=== PATIENT | female | born 1985 | race Caucasian/White ===

== ENCOUNTER → 2018-11-14 | Outpatient (CLI) | payer OTHER, SELFPAY ==
[2018-11-14 10:27] LABS: hCG Titer Quant., Serum < 1 mIU/mL (<9 non-preg)
== END | disposition home or self-care (01) ==
LOC: PAVLAB 09:21
PROVIDERS: Family Provider Family Medicine; PCP Family Medicine; Referring Provider Obstetrics & Gynecology; Visit Provider Obstetrics & Gynecology
DX: Z34.90 Encounter for supervision of normal pregnancy, unspecified, unspecified trimester (principal)
CPT/HCPCS: 36415; 84702

== ENCOUNTER → 2019-01-23 | Outpatient (CLI) | payer OTHER, SELFPAY ==
[2019-01-23 13:06] LABS: Absolute Lymphocyte Count 2.39 X10^3/ul (0.83-4.51); Absolute Neutrophil Count 8.1 X10^3/uL (2.0-7.7); Basophil# 0.05 X10^3/uL; Basophil% 0.4 % (0-1); Eosinophil# 0.15 X10^3/uL; Eosinophils% 1.3 % (0-5); Hematocrit 40.5 % (37-47); Hemoglobin 12.8 g/dl (12.0-15.0); Lymphocyte # 2.39 X10^3/ul (4.0); Lymphocyte % 21.4 % (19-41); Mean Corp Hgb Conc 31.6 g/gl (32-36); Mean Corpuscular Hgb 24.2 pg (27.0-32.0); Mean Corpuscular Volume 76.7 fL (81-99); Mean Platelet Vol. 11.3 fl (6.2-12.0); Monocyte# 0.49 X10^3/uL; Monocyte% 4.4 % (0-10); Neutrophil # 8.07 X10^3/uL (2.7-7.7); Neutrophil % 72.2 % (47-70); Platelet Count 330 K/mm3 (150-450); RBC Distribution Width CV 14.4 % (11.6-14.6); RBC Distribution Width SD 39.6 fl (35.1-43.9); Red Blood Count 5.28 M/mm3 (4.2-5.4); White Blood Count 11.2 K/mm3 (4.4-11.0)
[2019-01-23 13:09] LABS: POSITIVE COUNT NO; POSITIVE DIFFERENTIAL NO; POSITIVE MORPHOLOGY NO
[2019-01-23 13:48] LABS: Thyroid Stim Hormone (TSH) 1.04 uIU/mL (0.358-3.74)
== END | disposition home or self-care (01) ==
LOC: LAB 12:26
PROVIDERS: Family Provider Family Medicine; PCP Family Medicine; Referring Provider Obstetrics & Gynecology; Visit Provider Obstetrics & Gynecology
DX: N93.9 Abnormal uterine and vaginal bleeding, unspecified (principal)
CPT/HCPCS: 36415; 84443; 85025

== ENCOUNTER → 2019-01-27 | Outpatient (CLI) | payer OTHER, SELFPAY ==
[2018-02-21 10:18] VITALS: BMI 45.6
--- NOTE | 2019-01-27 10:12 | US_ITS ---
HISTORY: Abnormal uterine dysfunction. Abnormal uterine bleeding. LMP 01/18/2019 50 endovaginal images. 53 transabdominal images. Findings: No comparison imaging: Endovaginal imaging: The urinary bladder is mostly decompressed. The uterus measures 8.5 x 3.8 x 5.1 cm. The endometrial stripe transabdominally is estimated at 3 mm. Color Doppler imaging fails to demonstrate flow significantly to the myometrium. There are no large masses or fluid collections. The right ovary measures 2.4 x 3.1 x 1.9 cm. Color and pulse wave Doppler imaging suggest probable flow to right ovarian parenchyma. The left ovary is not identified transabdominally. Endovaginal imaging: A nabothian cyst is present. Myometrium remains homogeneous. Endometrial stripe is measured at 8 mm. There are no large masses or fluid collections. The cervix is closed. The ovaries are not identified. US/Pelvic (Non ) IMPRESSION: Normal. Nonvisualization of the left ovary. Identification of the right ovary only on transabdominal imaging. Priest comments study is limited due to patient's large body habitus. at 2031 Reported and signed by: Chris Muhammad MD Electronically Signed: Chris Muhammad MD at 20:30 EDT Tel , Service support ,
--- NOTE | 2019-01-27 10:12 | US_ITS ---
HISTORY: Abnormal uterine dysfunction. Abnormal uterine bleeding. LMP 01/18/2019 50 endovaginal images. 53 transabdominal images. Findings: No comparison imaging: Endovaginal imaging: The urinary bladder is mostly decompressed. The uterus measures 8.5 x 3.8 x 5.1 cm. The endometrial stripe transabdominally is estimated at 3 mm. Color Doppler imaging fails to demonstrate flow significantly to the myometrium. There are no large masses or fluid collections. The right ovary measures 2.4 x 3.1 x 1.9 cm. Color and pulse wave Doppler imaging suggest probable flow to right ovarian parenchyma. The left ovary is not identified transabdominally. Endovaginal imaging: A nabothian cyst is present. Myometrium remains homogeneous. Endometrial stripe is measured at 8 mm. There are no large masses or fluid collections. The cervix is closed. The ovaries are not identified. US/Transvaginal Non- IMPRESSION: Normal. Nonvisualization of the left ovary. Identification of the right ovary only on transabdominal imaging. [employer] Operator comments study is limited due to patient's large body habitus. at 2031 Reported and signed by: Chris Muhammad MD Electronically Signed: Chris Muhammad MD at 20:30 EDT Tel , Service support ,
== END | disposition home or self-care (01) ==
PROVIDERS: Family Provider Family Medicine; PCP Family Medicine; Referring Provider Obstetrics & Gynecology; Visit Provider Obstetrics & Gynecology
DX: N93.9 Abnormal uterine and vaginal bleeding, unspecified (principal)
CPT/HCPCS: 76830; 76856

== ENCOUNTER → 2019-05-01 | Outpatient (CLI) | payer OTHER, SELFPAY ==
[2019-05-01 15:55] VITALS: BMI 45.6
[2019-05-07 13:38] LABS: HPV APTIMA, High Risk Negative (Negative)
== END | disposition home or self-care (01) ==
LOC: LABSPEC 16:28
PROVIDERS: Family Provider Family Medicine; PCP Family Medicine; Referring Provider Obstetrics & Gynecology; Visit Provider Obstetrics & Gynecology
DX: Z12.4 Encounter for screening for malignant neoplasm of cervix (principal)
CPT/HCPCS: 87624; 88175; G0145

== ENCOUNTER → 2019-06-22 15:26 | Outpatient (CLI) | payer OTHER, SELFPAY ==
[2019-05-01 15:55] VITALS: BMI 45.6
--- NOTE | 2019-06-22 | LES_PTH ---
PATIENT: ERMA HICKMAN LOC: [facility] U#:[id number] AGE/SX: 39/F ROOM: RE06/22/[address]: Dr. Romel Rodriguez MD : 1985 BED: DIS: SPEC #: [id number] RECD: 06/25/19 15:20 STATUS: SCAR THAIS #: [id number] POONAM: 06/22/19 00:[address]: Romel Rodriguez DEPT: SURGICAL PATHOLOGY RECD BY: Peewee Vega ENTERED: 06/26/19 10:43 SP TYPE: Lesion OTHR DR: Dr. Fernando Sheehan III, MD Tissues: Skin of face, NOS Procedures: Surgery Specimen Level IV HEADER OPERATION: Skin punch biopsy PRE-OP DIAGNOSIS: L98.9 TISSUE SUBMITTED: Skin lesion face MICROSCOPIC DIAGNOSIS Skin lesion of face, biopsy: Ulceration with associated acute inflammation and reactive epithelial atypia. No evidence of malignancy. AM:victorino 06/27/19 MICROSCOPIC DESCRIPTION Slides are reviewed. GROSS DESCRIPTION Received in fixative is one container labeled with the patient's name and designated skin lesion face. The specimen consists of an irregular fragment of light vásquez-yellow soft tissue measuring 4 cm in length and 2 cm in diameter. The specimen is totally submitted in one cassette. / AM:victorino 06/26/19 TC:2 CPT: 01146
== END ==
PROVIDERS: Family Provider Family Medicine; PCP Family Medicine; Referring Provider Surgery; Visit Provider Surgery
DX: L98.9 Disorder of the skin and subcutaneous tissue, unspecified (principal)
CPT/HCPCS: 88305

== ENCOUNTER → 2022-07-19 | Outpatient (CLI) | payer OTHER, SELFPAY ==
[2022-07-19 09:04] LABS: Hemoglobin A1c 5.7 % (3.8-5.6)
[2022-07-19 09:12] LABS: Cholesterol 213 mg/dL (200); Glucose 96 mg/dL (74-106); High Density Lipoprotein 43 mg/dL; Triglycerides 173 mg/dL; Very Low Density Lipoprotein 35 mg/dL (5-40)
== END | disposition home or self-care (01) ==
PROVIDERS: Referring Provider Obstetrics & Gynecology; Visit Provider Obstetrics & Gynecology
DX: Z01.419 Encounter for gynecological examination (general) (routine) without abnormal findings (principal)
CPT/HCPCS: 36415; 80061; 82947; 83036

== ENCOUNTER → 2022-08-16 | Outpatient (CLI) | payer OTHER, SELFPAY | END | disposition home or self-care (01) | LOC: LABSPEC 16:39 | PROVIDERS: Referring Provider Obstetrics & Gynecology; Visit Provider Obstetrics & Gynecology | DX: N64.52 Nipple discharge (principal) | CPT/HCPCS: 87070; 87205 ==

== ENCOUNTER → 2022-08-19 | Outpatient (CLI) | payer OTHER, SELFPAY ==
--- NOTE | 2022-08-19 09:14 | US_ITS ---
STUDY: ULTRASOUND BREAST - RIGHT REASON FOR EXAM: Female, 37 years old. Right periareolar skin thickening. Right axillary lymph node. TECHNIQUE: Axial and longitudinal images of the RIGHT breast were performed with a high resolution ultrasound transducer. # OF IMAGES: 32 COMPARISON: Comparison is made with prior mammogram done earlier in the day. FINDINGS: RIGHT Breast: The periareolar region was examined with ultrasound. There is evidence of skin thickening. No mass lesion is seen. 2, Lymph nodes are seen in the right axilla. The larger lymph node measures 1.7 cm x 1.7 cm x 1.2 cm. A fatty hilum is seen. US/Breast Limited Unilateral IMPRESSION: Periareolar skin thickening. No mass lesion is seen., 2, Benign-appearing right axillary lymph nodes. ASSESSMENT CATEGORY: BIRADS Category 2: Benign. A letter regarding these results will be sent to the patient by the facility within 30 days. Electronically Signed: Gabe Garibay MD at 10:53 EST ,
--- NOTE | 2022-08-19 09:14 | BI_ITS ---
MAMMOGRAPHY - BILATERAL DIAGNOSTIC REASON FOR EXAM: Female, 37 years old. Right nipple thickening. Swelling of the right nipple. PERTINENT HISTORY: Mother with breast cancer. TECHNIQUE: Digital bilateral breast pepito (3D mammographic acquisition) in the CC and MLO projections. 2-D mediolateral oblique (MLO) and craniocaudad (CC) views of both breasts were obtained. CAD: Full Field Digital Mammography with Computer Added Detection was performed. COMPARISON: None. Baseline examination. FINDINGS: Breast Composition: There are scattered areas of fibroglandular density. There is thickening of the right periareolar region with overlying skin thickening. Correlation with ultrasound is recommended. There is also evidence of a 2.1 cm lymph node in the right axilla. Correlation with ultrasound is recommended. No other significant abnormalities are identified. BI/DIAG MAMM W/CAD, BILAT IMPRESSION: Thickening of the right periareolar region with overlying skin thickening. Correlation with ultrasound is recommended. 2 cm lymph node in the right axilla. Correlation with ultrasound is recommended as well. ASSESSMENT CATEGORY: BIRADS Category 0: Incomplete. Need additional imaging evaluation. A letter regarding these results will be sent to the patient by the facility within 30 days. Approximately 10% of breast cancers are not detected by mammography. A normal mammogram should not delay biopsy of a clinically suspicious abnormality. Electronically Signed: Gabe Garibay MD at 10:11 [facility] ,
== END | disposition home or self-care (01) ==
LOC: OPBI 09:11
PROVIDERS: Referring Provider Obstetrics & Gynecology; Visit Provider Obstetrics & Gynecology
DX: N64.4 Mastodynia (principal); N64.52 Nipple discharge
CPT/HCPCS: 76642; 77062; 77066; G0279

== ENCOUNTER → 2022-08-20 | Outpatient (CLI) | payer OTHER, SELFPAY ==
--- NOTE | 2022-08-20 | LES_PTH ---
PATIENT: ERMA HICKMAN LOC: [facility] U#:[id number] AGE/SX: 37/F ROOM: RE08/20/[address]: Dr. Jacky Rollins MD : 1985 BED: DIS: 08/20/2022 SPEC #: [id number] RECD: 08/20/22 11:42 STATUS: SCAR REJuan #: [id number] POONAM: 08/20/22 00:[address]: Jacky Rollins DEPT: SURGICAL PATHOLOGY RECD BY: Radhames Mac ENTERED: 08/20/22 11:42 SP TYPE: Lesion OTHR DR: No Primary Care Phys Tissues: Skin of breast, NOS Procedures: Special Stain Group I Surgery Specimen Level IV GMS Stain (control) HEADER OPERATION: Punch biopsy right nipple lesion PRE-OP DIAGNOSIS: Right breast lesion (nipple) TISSUE SUBMITTED: Right breast nipple MICROSCOPIC DIAGNOSIS Right breast nipple lesion, punch biopsy: A piece of skin with underlying tissue with extensive ulceration and associated acute inflammation and fibrinopurulent exudation. Moderate dermal chronic inflammation. Negative for malignancy. See comment. FRANKIE:victorino 08/23/2022 COMMENT Special stain for fungi is negative for organisms; matched control is appropriate. Correlation with clinical findings and appropriate follow up are necessary. MICROSCOPIC DESCRIPTION Slides are reviewed. GROSS DESCRIPTION Received in fixative is one container labeled with the patient's name and designated right nipple. The specimen consists of a punch biopsy of vásquez-white skin measuring 0.3 cm in diameter and 0.7 cm in length. A minute fragment of vásquez-brown tissue is also present measuring 0.2 x 0.1 x 0.1 cm. The entire specimen is submitted in one cassette. / FRANKIE:victorino 08/20/2022 TC:2 CPT: 33931, 37698
== END | disposition home or self-care (01) ==
LOC: LABSPEC 10:15
PROVIDERS: Referring Provider Surgery; Visit Provider Surgery
DX: N64.9 Disorder of breast, unspecified (principal)
CPT/HCPCS: 88305; 88312

== ENCOUNTER → 2022-11-29 | Outpatient (CLI) | payer OTHER, SELFPAY ==
--- NOTE | 2022-11-29 | SKTAG_PTH ---
PATIENT: ERMA HICKMAN LOC: [facility] #:[id number] AGE/SX: 37/F ROOM: RE11/29/[address]: Dr. Hayde Luna MD : 1985 BED: DIS: 11/29/2022 SPEC #: [id number] RECD: 11/29/22 16:41 STATUS: SCAR PLASCENCIA #: [id number] POONAM: 11/29/22 00:[address]: Hayde Luna DEPT: SURGICAL PATHOLOGY RECD BY: Lisa Flynn ENTERED: 11/30/22 07:53 SP TYPE: SKIN TAG OT DR: No Primary Care Phys Tissues: Skin appendage, NOS Procedures: Surgery Specimen Level III HEADER OPERATION: Skin tag removal PRE-OP DIAGNOSIS: Skin tag inner thigh TISSUE SUBMITTED: Inner thigh MICROSCOPIC DIAGNOSIS Skin lesion of inner thigh, biopsy: Two fragments of benign fibroepithelial polyps. AM:victorino 12/01/2022 MICROSCOPIC DESCRIPTION Slides are reviewed. GROSS DESCRIPTION Received is one container labeled with the patient's name and not further designated. The specimen consists of two irregular fragments of vásquez tissue that in aggregate measure 1.0 x 0.5 x 0.1 cm. The specimen is totally submitted in one cassette. / AM:victorino 11/30/2022 TC:5 CPT: 65602
== END | disposition home or self-care (01) ==
LOC: LABSPEC 16:50
PROVIDERS: Referring Provider Obstetrics & Gynecology; Visit Provider Obstetrics & Gynecology
DX: L91.8 Other hypertrophic disorders of the skin (principal)
CPT/HCPCS: 88304

== ENCOUNTER → 2023-01-17 | Outpatient (CLI) | payer OTHER, SELFPAY ==
[2023-01-17 08:49] LABS: Hemoglobin A1c 5.3 % (3.8-5.6)
[2023-01-17 08:59] LABS: Vitamin D,25 Hydroxy 13.5 ng/mL
[2023-01-17 09:04] LABS: ALB/GLOB Ratio 0.6 RATIO (0.9-2.4); AST(SGOT) 11 U/L (15-37); Alanine Aminotransfer ALT/SGPT 18 U/L (13-56); Albumin, Serum 2.7 g/dL (3.2-5.0); Alkaline Phosphatase 95 U/L (45-117); Anion Gap 4 (5-15); BUN 10 mg/dL (7-18); BUN/Creat Ratio 15.2 RATIO (10-20); Calcium,Total 8.7 mg/dL (8.5-10.1); Chloride 108 mmol/L (98-107); Cholesterol 177 mg/dL (200); Creatinine, Serum 0.66 mg/dL (0.55-1.02); EST Glomerular Filtration Rate 107 mL/min (>60); Est Glom Filt Rate - Afr Amer 130 mL/min (>60); Globulin 4.4 g/dL (2.2-4.2); Glucose 91 mg/dL (74-106); High Density Lipoprotein 52 mg/dL; Potassium 3.9 mmol/L (3.5-5.1); Protein, Total 7.1 g/dL (6.4-8.2); Sodium Level 137 mmol/L (136-145); Thyroid Stim Hormone (TSH) 1.54 uIU/mL (0.358-3.74); Triglycerides 124 mg/dL; Very Low Density Lipoprotein 25 mg/dL (5-40)
== END | disposition home or self-care (01) ==
LOC: PAVLAB 08:08
PROVIDERS: Referring Provider Obstetrics & Gynecology; Visit Provider Obstetrics & Gynecology
DX: E78.5 Hyperlipidemia, unspecified (principal); E88.81 Metabolic syndrome and other insulin resistance
CPT/HCPCS: 36415; 80053; 80061; 82306; 83036; 84443

== ENCOUNTER → 2023-03-18 | Outpatient (CLI) | payer OTHER, SELFPAY ==
[2023-03-18 08:42] LABS: Hemoglobin A1c 5.8 % (3.8-5.6)
[2023-03-18 08:58] LABS: Progesterone Level 10.97 ng/mL (See Comment); Vitamin D,25 Hydroxy 12.2 ng/mL
== END | disposition home or self-care (01) ==
PROVIDERS: Referring Provider Obstetrics & Gynecology; Visit Provider Obstetrics & Gynecology
DX: E88.81 Metabolic syndrome and other insulin resistance (principal); E55.9 Vitamin D deficiency, unspecified; N92.1 Excessive and frequent menstruation with irregular cycle; N97.0 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 with anovulation
CPT/HCPCS: 36415; 82306; 83036; 84144

== ENCOUNTER → 2023-03-21 | Outpatient (CLI) | payer OTHER, SELFPAY ==
--- NOTE | 2023-03-21 | LES_PTH ---
PATIENT: ERMA HICKMAN LOC: [facility] U#:[id number] AGE/SX: 37/F ROOM: RE03/21/[address]: Dr. Hayde Luna MD : 1985 BED: DIS: 03/21/2023 SPEC #: [id number] RECD: 03/21/23 13:35 STATUS: SCAR REJuan #: [id number] POONAM: 03/21/23 00:[address]: Hayde Luna DEPT: SURGICAL PATHOLOGY RECD BY: Radhames Mac ENTERED: 03/22/23 09:00 SP TYPE: Lesion OTHR DR: No Primary Care Phys Tissues: Skin appendage, NOS Procedures: Surgery Specimen Level IV HEADER OPERATION: Skin tag removal PRE-OP DIAGNOSIS: Skin tag TISSUE SUBMITTED: Skin tag MICROSCOPIC DIAGNOSIS Skin tag, biopsy: Fragments of benign fibroepithelial polyp, inflamed. AM/am 03/23/23 MICROSCOPIC DESCRIPTION Slides are reviewed. GROSS DESCRIPTION Received is one container labeled with the patient's name and not further designated. The specimen consists of three irregular fragments of vásquez tissue that in aggregate measure 1.0 x 0.5 x 0.2 cm. The specimen is totally submitted in one cassette. / AM:victorino 03/22/2023 TC:5 [facility]: [id number]
== END | disposition home or self-care (01) ==
LOC: LABSPEC 13:50
PROVIDERS: Visit Provider Obstetrics & Gynecology
DX: L91.8 Other hypertrophic disorders of the skin (principal)
CPT/HCPCS: 88305

== ENCOUNTER → 2023-04-15 | Outpatient (CLI) | payer OTHER, SELFPAY ==
[2023-04-15 10:01] LABS: Progesterone Level 17.05 ng/mL (See Comment)
== END | disposition home or self-care (01) ==
PROVIDERS: Referring Provider Obstetrics & Gynecology; Visit Provider Obstetrics & Gynecology
DX: N97.0 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 with anovulation (principal)
CPT/HCPCS: 36415; 84144

== ENCOUNTER → 2023-05-14 | Outpatient (CLI) | payer OTHER, SELFPAY ==
[2023-05-16 08:44] LABS: Progesterone Level 10.52 ng/mL (See Comment)
== END | disposition home or self-care (01) ==
LOC: LAB 09:46
PROVIDERS: PCP Internal Medicine; Referring Provider Obstetrics & Gynecology; Visit Provider Obstetrics & Gynecology
DX: N97.0 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 with anovulation (principal); N93.9 Abnormal uterine and vaginal bleeding, unspecified
CPT/HCPCS: 36415; 84144

== ENCOUNTER → 2023-07-05 | Outpatient (CLI) | payer OTHER, SELFPAY ==
[2023-07-05 09:49] LABS: Progesterone Level 11.37 ng/mL (See Comment)
== END | disposition home or self-care (01) ==
LOC: PAVLAB 08:02
PROVIDERS: PCP Internal Medicine; Referring Provider Obstetrics & Gynecology; Visit Provider Obstetrics & Gynecology
DX: N97.0 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 with anovulation (principal)
CPT/HCPCS: 36415; 84144

== ENCOUNTER → 2023-08-04 | Outpatient (CLI) | payer OTHER, SELFPAY ==
[2023-08-04 08:57] LABS: Progesterone Level 10.74 ng/mL (See Comment)
== END | disposition home or self-care (01) ==
PROVIDERS: PCP Internal Medicine; Referring Provider Obstetrics & Gynecology; Visit Provider Obstetrics & Gynecology
DX: N97.0 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 with anovulation (principal)
CPT/HCPCS: 36415; 84144

== ENCOUNTER → 2024-12-17 | Outpatient (CLI) | payer SELFPAY ==
--- NOTE | 2024-12-17 14:32 | US_ITS ---
PROCEDURE: PELVIC W/ TRANSVAGINAL REASON FOR EXAM: CYCLICAL PELVIC PAIN TECHNIQUE: Transabdominal and transvaginal pelvic ultrasound COMPARISON: None FINDINGS: LMP: November 14, 2024. Measurements: Uterus: 10.1 cm x 5.6 cm x 4.9 cm with a volume of 145.2 mL Endometrial Thickness: 1.46 cm. Hyperechoic. Right Ovary: 4.1 cm x 2.8 cm x 2.1 cm with a volume of 9.4 mL. Left Ovary: 3.7 cm x 2.2 cm x 2 cm with a volume of 8.61 mL. TRANSABDOMINAL: Uterus: There is evidence of a 2.8 cm x 3 cm x 2.4 cm uterine fibroid along the anterior wall of the uterus. Endometrium: The endometrium is thickened and measures 1.4 cm. Right ovary: Normal size and echotexture. Left ovary: Normal size and echotexture. Other: No large pelvic mass identified. Transvaginal sonography was performed to better visualize the endometrium. TRANSVAGINAL: Uterus: Anteverted. Uterine fibroid as described. Endometrium: Endometrial thickening measuring 1.4 cm. Right ovary: Normal size and echotexture. Left ovary: Normal size and echotexture. Other adnexal findings: None. Cul-de-sac: No free intraperitoneal fluid identified. Tenderness: No tenderness US/Pelvic w/ Transvaginal IMPRESSION: Enlarged fibroid uterus. Endometrial thickening measuring 1.4 cm. Reading Location: [place] [id number]
== END | disposition home or self-care (01) ==
PROVIDERS: PCP Internal Medicine; Referring Provider Obstetrics & Gynecology; Visit Provider Obstetrics & Gynecology
DX: R10.2 Pelvic and perineal pain (principal)
CPT/HCPCS: 76830; 76856

== ENCOUNTER → 2025-01-24 | Outpatient (CLI) | payer SELFPAY ==
--- OUTSIDE RECORDS SUMMARY | 2025-01-24 09:35 | XMS RPT_ITS | CCD ---
Author Organization [facility] Care Team Providers Care Roofing Technician Name Role Phone Dr. Hayde Luna Attending Provider [phone] [employer] PERFORMANCE IMPROVEMENT CONSULTANT, SALVATORE Harper Attending Provider [phone] Care Physician, No Primary Primary Care Provider Unavailable Care Physician, No Primary Referring Provider Un available Dr. Jacky Rollins Attending Provider [phone] Care Physician, No Primary Primary Care Provider Unavailable Care Physician, No Primary Referring Provider Un available Dr. Hayde Luna Attending Provider [phone] Dr. Jacky Rollins Attending Provider Dr. Hayde Luna Attending Provider [phone] Care Physician, No Primary Primary Care Provider Unavailable Care Physician, No Primary Referring Provider Un available Care Physician, No Primary Primary Care Provider Unavailable Care Physician, No Primary Referring Provider Un available Dr. Hayde Luna Attending Provider [phone] Dr. Hazel Eason Attending Provider Care Physician, No Primary Primary Care Provider Unavailable Care Physician, No Primary Referring Provider Un available Dr. Hayde Luna Attending Provider [phone] Care Physician, No Primary Primary Care Provider Unavailable Care Physician, No Primary Referring Provider Un available Dr. Hayde Luna Attending Provider [phone] Care Physician, No Primary Primary Care Provider Unavailable Care Physician, No Primary Referring Provider Un available Dr. Hayde Luna Attending Provider [phone] GARCÍA OJEDA, FERNANDO Rodney III Primary Care Physician DOMINGO CLEMENTS DO Attending Unavailable FERNANDO SHEEHAN MD, III Primary Care Unavailabl e Dr. Hazel Eason MD Primary Care Provider Dr. Hazel Eason MD Referring Provider Jeremy OJEDA, Dr. Lock Attending Provider [phone] Dr. Hayde Luna MD Referring Provider Hayde Luna Attending Unavailable Hazel Eason Primary Care Unavailable Hazel Eason Referring Unavailable Hayde Luna Attending Unavailable Hayde Luna Referring Unavailable Hazel Eason Primary Care Unavailable Allergies Allergy Classification Reported Allergen(s) Allergy Type Date of Onset Reaction(s) Facility (13 sources) Amoxicillin; Translations: [amoxicillin] Drug Allergy 06-18-2021 [facility] (12 sources) Penicillins Allergy to substance 06-18-2021 [facility] (1 source) Penicillin; Translations: [penicillin] Drug Allergy [facility] (1 source) Amoxicillin Drug Allergy 12-07-2024 [facility] (1 source) Penicillins Drug allergy (disorder) 12-07-2024 [facility] Medications Current Medications Medication Drug Class(es) Dates Sig (Normalized) Sig (Original) benzonatate 100 mg oral capsule (1 source) Non-narcotic Antitussive Start: 06-24-2020 Tessalon Perles 100 mg oral capsule Dose : 200 mg = 2 cap(s), Oral, TID, PRN as needed for cough, # 30 cap(s), 0 Refill(s), Upper respiratory infection Start Date: 06/24/20 Status: Ordered Quantity: 30.0 Unit: cap(s) Repeat number: 1 Indication: Acute upper respiratory infection, unspecified etonogestrel 68 mg drug implant (13 sources) Progestin Start: 10-16-2019 Nexplanon 68 mg subcutaneous implant 0 Refill(s) Start Date: 10/16/19 Status: Ordered Repeat number: 1 Start: 05-01-2019 End: 01-17-2023 Etonogestrel (Nexplanon) 68 mg implant Discontinued 1 NMA subdermal ONCE May 01, 2019 12:00am January 17, 2023 3:39pm ondansetron 4 mg disintegrating oral tablet (1 source) Serotonin-3 Receptor Antagonist Start: 09-03-2024 End: 09-07-2024 ondansetron 4 mg oral tablet, disintegrating Dose : 4 mg = 1 tab(s), Oral, q6h, PRN Nausea/Vomiting, X 4 day(s), # 12 tab(s), 0 Refill(s), 09/07/24 3:42:00 AM EST Start Date: 09/03/24 Stop Date: 09/07/24 Status: Ordered Quantity: 12.0 Unit: tab(s) Repeat number: 1 Pnv #77-[id number]-[id number] Acid-Dha (6 sources) Start: 12-13-2022 take 1 capsule by mouth once daily Pnv #45-Vdqp-Qhzyx Acid-Dha Active 1 CAP PO DAILY December 12, 2022 11:00pm Start: 12-13-2022 take 1 capsule by mo [facility] once daily Pnv #76-Ravg-Yvmgx Acid-Dha Active 1 CAP PO DAILY December 13, 2022 12:00am Completed/Discontinued Medications Medication Drug Class(es) Dates Sig (Normalized) Sig (Original) cholecalciferol 1.25 mg oral capsule (6 sources) Vitamin D Start: 01-26-2023 End: 12-07-2024 take 1 capsule by mouth every week Cholecalciferol (Vitamin D3) 1,250 mcg (50,000 unit) capsule Discontinued 1250 ug PO EVERY WEEK January 26, 2023 12:00am December 07, 2024 10:15am Desogestrel-Ethinyl Estradiol (12 sources) Progestin, Estrogen Start: 12-08-2017 End: 02-13-2019 take 0.15 tablet by mouth once daily Desogestrel-Ethinyl Estradiol (Apri) 0.15-0.03 mg tablet Discontinued 1 {tbl} PO daily December 08, 2017 12:00am February 13, 2019 3:20pm Start: 12-08-2017 End: 02-13-2019 Desogestrel-Ethinyl Estradio l (Apri) 0.15-0.03 mg tablet Discontinued 1 TABLET PO daily December 08, 2017 12:00am February 13, 2019 3:20pm Start: 12-08-2017 End: 02-13-2019 Desogestrel-Ethinyl Estradio l (Apri) 0.15-0.03 mg tablet Discontinued 1 TABLET PO daily December 07, 2017 11:00pm February 13, 2019 2:20pm doxycycline monohydrate 100 mg oral capsule (12 sources) Tetracycline-class Drug Start: 06-26-2019 End: 03-02-2021 take 1 capsule by mouth twice daily Doxycycline Monohydrate 100 mg capsule Discontinued 100 mg PO TWICE A DAY June 26, 2019 1:00am March 02, 2021 3:43pm Levonorgestrel-Et hinyl Estrad (12 sources) Progestin, Estrogen, Progestin-containing Intrauterine Device Start: 03-14-2018 End: 02-13-2019 take 1 tablet by mouth once daily Levonorgestrel-Et hinyl Estrad (Aviane) 0.1-20 mg-mcg tablet Discontinued 1 {tbl} PO daily March 14, 2018 12:00am February 13, 2019 3:44pm Start: 03-14-2018 End: 02-13-2019 take 1 tablet by mouth once daily Levonorgestrel-Ethinyl Estrad (Aviane) 0.1-20 mg-mcg tablet Discontinued 1 TABLET PO daily March 14, 2018 12:00am February 13, 2019 3:44pm Start: 03-14-2018 End: 02-13-2019 take 1 tablet by mouth once daily Levonorgestrel-Ethinyl Estrad (Aviane) 0.1-20 mg-mcg tablet Discontinued 1 TABLET PO daily March 13, 2018 11:00pm February 13, 2019 2:44pm Norgestimate-Ethinyl Estradiol (12 sources) Progestin, Estrogen Start: 02-13-2019 End: 05-01-2019 Norgestimate-Ethinyl Estradiol (Sprintec (28)) 0.25-35 mg-mcg tablet Discontinued 1 {tbl} PO daily February 13, 2019 12:00am May 01, 2019 3:54pm Start: 02-13-2019 End: 05-01-2019 take 1 tablet by mouth once daily Norgestimate-Ethinyl Estradiol (Sprintec (28)) 0.25-35 mg-mcg tablet Discontinued 1 TABLET PO daily February 13, 2019 12:00am May 01, 2019 3:54pm Start: 02-13-2019 End: 05-01-2019 take 1 tablet by mouth once daily Norgestimate-Ethinyl Estradiol (Sprintec (28)) 0.25-35 mg-mcg tablet Discontinued 1 TABLET PO daily February 12, 2019 11:00pm May 01, 2019 2:54pm letrozole 2.5 mg oral tablet (20 sources) Aromatase Inhibitor Start: 05-04-2023 End: 06-05-2023 Letrozole Active 7.5 MG PO daily 15 June 05, 2023 1:42pm take one daily cycle day 3-7 Start: 03-21-2023 End: 05-04-2023 Letrozole Discontinued 5 MG PO daily March 21, 2023 7:42am May 04, 2023 8:08pm take one daily cycle day 3-7 Start: 01-17-2023 End: 12-07-2024 Letrozole 2.5 mg tablet Disc ontinued 7.5 mg PO daily 15 June 05, 2023 2:42pm December 07, 2024 10:15am take one daily cycle day 3-7 medroxyPROGESTERone acetate 10 mg oral tablet (7 sources) Progestin Start: 01-17-2023 End: 12-07-2024 Medroxyprogesterone (Provera) 10 mg tablet Discontinued 10 mg PO daily January 17, 2023 12:00am December 07, 2024 10:15am take for five days if neg preg test and no menses after 35-40 days metFORMIN hydrochloride 500 mg oral tablet (16 sources) Biguanide Start: 09-27-2022 End: 01-26-2023 Metformin 500 mg tablet extended release 24 hr Discontinued 500 mg PO .COMPLEX 60 September 27, 2022 1:00am January 26, 2023 8:57am 500 mg orally once daily for two weeks then twice daily; Start: 09-27-2022 End: 01-17-2023 take 1 tablet by mouth twice daily Metformin 500 mg tablet Discontinued 500 mg PO TWICE A DAY September 27, 2022 1:00am January 17, 2023 3:49pm phentermine hydrochloride 37.5 mg oral tablet (20 sources) Sympathomimetic Amine Anorectic Start: 06-28-2022 End: 09-27-2022 take 1 tablet by mouth once daily Phentermine (Adipex-P) 37.5 mg tablet Discontinued 37.5 mg PO daily August 23, 2022 6:03pm September 27, 2022 5:10pm BMI 45 Start: 03-13-2019 End: 03-02-2021 take 1 tablet by mouth once daily Phentermine (Adipex-P) 37.5 mg tablet Discontinued 37.5 mg PO daily March 13, 2019 12:00am March 02, 2021 3:43pm Start: 02-13-2019 End: 04-10-2019 take 1 capsule by mouth once daily 30 minutes after breakfast Phentermine (Adipex-P) 37.5 mg capsule Discontinued 37.5 mg PO DAILY February 13, 2019 12:00am April 10, 2019 9:14am must administer 30 minutes before or 1-2 hours after breakfast Start: 12-08-2017 End: 02-13-2019 take 1 tablet by mouth once daily Phentermine (Adipex-P) 37.5 mg tablet Discontinued 37.5 mg PO daily January 17, 2018 2:22pm February 13, 2019 3:20pm Pnv #56-Mhea-Xrvml Acid-Dha 35 mg iron-5 mg iron-1 mg capsule (1 source) Start: 12-13-2022 End: 12-07-2024 Pnv #45-Ozki-Rcxwl Acid-Dha 35 mg iron-5 mg iron-1 mg capsule Discontinued 1 NMA PO DAILY December 13, 2022 12:00am December 07, 2024 10:15am sulfamethoxazole 800 mg / trimethoprim 160 mg oral tablet (11 sources) Dihydrofolate Reductase Inhibitor Antibacterial, Sulfonamide Antimicrobial Start: 08-16-2022 End: 08-26-2022 Sulfamethoxazole-Trim ethoprim (Bactrim Ds) 800-160 mg tablet Discontinued 1 {tbl} PO TWICE A DAY 20 05August 16, 2022 1:00am August 25, 2022 1:00am August 26, 2022 1:03am Problems Active Problems Problem Classification Problem Date Documented Da te Episodic/Chronic Abdominal pain (3 sources) Cyclic pelvic pain; Translations: [Pelvic and perineal pain] Onset: 12-19-2024 12-07-2024 Episodic Comment on above: ordered pelvic ultra sound referral to infertility specialist Administrative/social admission (3 sources) Persons encountering health services in other specified circumstances; Translations: [Other reasons for seeking consultation] 01-26-2023 Episodic Contraceptive and procreative management (3 sources) Encounter for surveillance of implantable subdermal contraceptive; Translations: [Surveillance of implantable subdermal contraceptive] 01-17-2023 Episodic Diabetes mellitus without complication (3 sources) Prediabetes; Translations: [Other abnormal glucose] 01-26-2023 Episodic Disorders of lipid metabolism (12 sources) Hyperlipidemia; Translations: [Hyperlipidemia, unspecified] 09-27-2022 Chronic Comment on above: encourage 5-10% weig ht loss, nutrition consult not covered. nutrition counseling done in office, EEP. Female infertility (20 sources) 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 with anovulation; Translations: [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 with anovulation] Chronic Comment on above: plan infertility berny atments with femara after weight loss attempts. nexplanon removed and plan femara 2.5, 5. 7.5 for up to 3 cycles. check progesterone to confirm ovulation with initial cycle. provera PRN. Nausea and vomiting (1 source) Nausea and vomiting; Translations: [Nausea with vomiting, unspecified] Onset: 09-03-2024 Episodic Nonmalignant breast conditions (19 sources) Lesion of right nipple; Translations: [Disorder of breast, unspecified] 08-20-2022 Episodic Nutritional deficiencies (3 sources) Vitamin D deficiency, unspecified; Translations: [Unspecified vitamin D deficiency] 01-26-2023 Chronic Other circulatory disease (7 sources) Elevated blood-pressure reading without diagnosis of hypertension; Translations: [Elevated blood-pressure reading, without diagnosis of hypertension] 01-17-2023 Episodic Comment on above: recommend home bps a nd establish with PCP. Other circulatory disease (6 sources) Elevated blood-pressure reading, without diagnosis of hypertension; Translations: [Elevated blood pressure reading without diagnosis of hypertension] 01-17-2023 Episodic Other female genital disorders (12 sources) Abnormal uterine bleeding; Translations: [Abnormal uterine and vaginal bleeding, unspecified] 04-27-2019 Chronic Comment on above: nexplanon- regular m enses now with it. Other female genital disorders (11 sources) Abnormal uterine and vaginal bleeding, unspecified; Translations: [Unspecified disorders of menstruation and other abnormal bleeding from female genital tract] Chronic Other female genital disorders (12 sources) History of endometrial hyperplasia; Translations: [Personal history of other diseases of the female genital tract] 07-21-2022 Episodic Comment on above: 2014:without atypia. 2015 normal EMB Other female genital disorders (3 sources) Personal history of other diseases of the female genital tract; Translations: [Personal history of other genital system and obstetric disorders] 09-27-2022 Episodic Other nutritional; endocrine; and metabolic disorders (13 sources) Body mass index 40+ - severely obese; Translations: [Body mass index (BMI) 45.0-49.9, adult] 08-23-2022 Chronic Comment on above: plan calorie countin g, myfitness pal [id number] and adipex. nexplanon for control. SW- 285 adipex. low carb and calorie restriction. SW-287.2 1m- 2m- 3m- Other nutritional; endocrine; and metabolic disorders (15 sources) Body mass index (BMI) 45.0-49.9, adult; Translations: [Body Mass Index 45.0-49.9, adult] Chronic Other nutritional; endocrine; and metabolic disorders (8 sources) Insulin resistance; Translations: [Metabolic syndrome] 09-27-2022 Chronic Comment on above: metformin recommende d, nutrition consult. repeat labs december Other nutritional; endocrine; and metabolic disorders (8 sources) Metabolic syndrome X; Translations: [Metabolic syndrome] 09-27-2022 Chronic Comment on above: nutrition consult no t covered, counselign provided, patient declines additional medication at this time. will remove nexplanon this summer. Other nutritional; endocrine; and metabolic disorders (11 sources) Metabolic syndrome; Translations: [Dysmetabolic syndrome X] 09-27-2022 Chronic Other skin disorders (8 sources) Skin tag; Translations: [Other hypertrophic disorders of the skin] 11-29-2022 Episodic Other skin disorders (6 sources) Other hypertrophic disorders of the skin; Translations: [Unspecified hypertrophic and atrophic conditions of skin] 11-29-2022 Episodic Residual codes; unclassified (3 sources) Immunization not carried out because of patient refusal; Translations: [Vaccination not carried out because of patient refusal] 01-26-2023 Episodic Past or Other Problems Problem Classification Problem Date Documented Da te Episodic/Chronic Unclassified (11 sources) Body mass index 40+ - severely obese; Translations: [Body mass index (BMI) greater than 40] 03-06-2021 Unclassified (3 sources) Infertile; Translations: [Full-term ] 01-26-2023 Results Test Name Value Interpretation Reference Range Facility Pelvic w/ Transvaginalon Pelvic w/ Transvaginal [facility] [address] [place] [address] Pelvic w/ Transvaginal MR#: [id number] Acct: [id number] Name: LETITIA HICKMAN Rep #: [id number] : 1985 F 39 From: Gabe lazo MD PCP: Dr. Hazel Eason MD Status: REG CLI Study: Pelvic w/ Transvaginal Date of Exam: 12/17/24 Exam# [id number] Ordering Dr: Hayde Luna PROCEDURE: PELVIC W/ TRANSVAGINAL REASON FOR EXAM: CYCLICAL PELVIC PAIN TECHNIQUE: Transabdominal and transvaginal pelvic ultrasound COMPARISON: None FINDINGS: LMP: November 14, 2024. Measurements: Uterus: 10.1 cm x 5.6 cm x 4.9 cm with a volume of 145.2 mL Endometrial Thickness: 1.46 cm. Hyperechoic. Right Ovary: 4.1 cm x 2.8 cm x 2.1 cm with a volume of 9.4 mL. Left Ovary: 3.7 cm x 2.2 cm x 2 cm with a volume of 8.61 mL. TRANSABDOMINAL: Uterus: There is evidence of a 2.8 cm x 3 cm x 2.4 cm uterine fibroid along the anterior wall of the uterus. Endometrium: The endometrium is thickened and measures 1.4 cm. Right ovary: Normal size and echotexture. Left ovary: Normal size and echotexture. Other: No large pelvic mass identified. Transvaginal sonography was performed to better visualize the endometrium. TRANSVAGINAL: Uterus: Anteverted. Uterine fibroid as described. Endometrium: Endometrial thickening measuring 1.4 cm. Right ovary: Normal size and echotexture. Left ovary: Normal size and echotexture. Other adnexal findings: None. Cul-de-sac: No free intraperitoneal fluid identified. Tenderness: No tenderness US/Pelvic w/ Transvaginal IMPRESSION: Enlarged fibroid uterus. Endometrial thickening measuring 1.4 cm. Reading Location: [place] [address] CC: Dr. Hazel Eason MD; Dr. Hayde Luna MD Scooping Machine Tender: Signed Normal [facility] Sack Lifter Office Visit Reporton 12-07-2024 S[facility] Office Visit Report [facility] [address], [address] [place] [address] OFFICE VISIT Date of Service: 12/07/24 MR#: [id number] Acct: [id number] Name: LETITIA HICKMAN Rep #: [id number] : 1985 Provider: Dr. Hayde avila MD Age/Sex: 39/F Location: [facility] Status: Signed Intake Vital Signs 03/21/23 08:24 12/07/24 10:12 12/07/24 10:19 Height 5 ft 4 in 5 ft 4 in 5 ft 4 in Weight: 300 lb 4 oz BMI 51.5 BP 159/102 H Intake Visit Reasons: PAIN DURING MENSES/FERTILITY Resort Housekeeper Required: No Is patient in pain?: No Allergies amoxicillin Allergy (Verified 12/07/24 10:15) Rash Penicillins (PCN) Allergy (Verified 12/07/24 10:15) Rash Is last menstrual period known: Yes Last Menstrual Period: 11/16/24 Post menopausal: No Patient : No : No PFSH Medical History Anxiety History of endometrial hyperplasia Hyperlipidemia Metabolic syndrome Skin tag Surgical History History of dilation and curettage History of right breast biopsy ( 08/2022) History of tonsillectomy Family History Mother Breast cancer Social History household members: spouse current occupational status: employed current occupation: [employer] Smoking Status: Never smoker Electronic Cigarette Use: not used alcohol intake: never substance use type: does not use caffeine: No what type of physical activity do you participate in: none seatbelt use: always do you feel safe at home: Yes additional social history: - [employer] Patient works at [employer] HPI PAIN DURING MENSES/FERTILITY Details: LETITIA HICKMAN is a 39 year old who presents for upper abdominal pain doesn't go away with OTC pain meds, happens day 2-3 of the cycle. she is having heavy bleeding for 1-2 days and then it tapers off. she is having regualr menses every month, occasionally a week early. she is ahving the pain monthly for the last 4 months. Female Reproductive History Last Menstrual Period: 11/16/24 Menopausal Symptoms: No night sweats History 0 Elective abortions Hx Para Spontaneous abortions Hx # Term Pregnancies Ectopic pregnancies Hx # Pregnancies Multiple births # of living children ROS Const Constitutional: Denies fatigue, night sweats, weight gain or weight loss ENT ENT: Reports system reviewed and no additional complaints, except as documented Cardio Card: Denies chest pain Resp Resp: Denies cough or dyspnea GI GI: Reports as per HPI; Denies abdominal pain, constipation, nausea or vomiting : Denies nipple discharge, urinary frequency, urinary incontinence, urinary hesitancy, urinary urgency, vaginal discharge, vaginal dryness, vaginal odor or vaginal pruritus Musc Musc: Denies arthralgias, back pain or muscle weakness Skin Skin/Breast: Denies alopecia, change in hair, dry skin, breast mass, breast pain, breast skin changes or nipple discharge Neuro Neuro: Reports system reviewed and no additional complaints, except as documented Psych Psych: Reports system reviewed and no additional complaints, except as documented Endo Endo: Denies cold intolerance, excessive sweating, heat intolerance or polydipsia Robert/Lymph Hematologic/Lymphatic : Denies easy bleeding, Denies easy bruising and Denies lymphadenopathy Exam Const General: cooperative, healthy appearing, comfortable and no acute distress Orientation: alert HENMT Head: normal to inspection and normocephalic Ears: hearing grossly normal bilaterally and external ears normal Nose: external nose normal and nares normal Face and sinus: normal facial exam Neck Neck: normal visual inspection and no lymphadenopathy Thyroid: thyroid normal Chest Chest palpation inspection: normal inspection of the chest Resp Effort Inspection: normal respiratory effort Auscultation: clear to auscultation bilaterally Cardio Rate: regular rate Rhythm: regular rhythm Heart Sounds: S1 normal and S2 normal GI Inspection: normal to inspection and non-distended Palpation: soft and no hepatosplenomegaly Musc Other: gross motor intact no deficits, full bilateral strength Skin General: no rashes or lesions noted Neuro General: patient alert, patient awake, moves all extremities and no focal motor deficits Motor: muscle tone normal throughout Extrem General: normal to inspection and no pedal edema Psych Appearance: grossly normal Mental Status: mental status grossly normal Affect: normal affect Speech and Movement: speech and movement normal Coding Level of Care Code Of (more content not included)... Normal [facility] .Auto Diffon 09-03-2024 Basophil, Absolute 0.0 10 3/mcL Normal 0.0-0.2 [facility] Comment on above: Performed By: #### C BC, LIP, GFR, ADIFF, CMP, MDW, MG, ANEU #### [address] [address] Basophils/100 WBC (Bld) 0.2 % Normal 0.0-2.5 [facility] Comment on above: Performed By: #### C BC, LIP, GFR, ADIFF, CMP, MDW, MG, ANEU #### [address] [address] Eosinophil, Absolute 0.1 10 3/mcL Normal 0.0-0.7 [facility] Comment on above: Performed By: #### C BC, LIP, GFR, ADIFF, CMP, MDW, MG, ANEU #### [address] [address] Eosinophils/100 WBC (Bld) 0.4 % Normal 0.0-7.0 [facility] Comment on above: Performed By: #### C BC, LIP, GFR, ADIFF, CMP, MDW, MG, ANEU #### [address] [address] Lymphocyte, Absolute 0.8 10 3/mcL Low 0.9-4.3 [facility] Comment on above: Performed By: #### C BC, LIP, GFR, ADIFF, CMP, MDW, MG, ANEU #### [address] [address] Lymphocytes/100 WBC (Bld) 4.3 % Low 20.0-40.0 [facility] Comment on above: Performed By: #### C BC, LIP, GFR, ADIFF, CMP, MDW, MG, ANEU #### [address] [address] Monocyte, Absolute 0.7 10 3/mcL Normal 0.1-1.4 [facility] Comment on above: Performed By: #### C BC, LIP, GFR, ADIFF, CMP, MDW, MG, ANEU #### [address] [address] Monocytes/100 WBC (Bld) 3.9 % Normal 2.0-13.0 [facility] Comment on above: Performed By: #### C BC, LIP, GFR, ADIFF, CMP, MDW, MG, ANEU #### [address] [address] Neutrophils/100 WBC (Bld) 91.2 % High 50.0-75.0 [facility] Comment on above: Performed By: #### C BC, LIP, GFR, ADIFF, CMP, MDW, MG, ANEU #### [address] [address] .GFRon 09-03-2024 GFR 88 ml/min/1.73sqm Normal [facility] Comment on above: Result Comment: GFR Population mean for , Non- Americans Ages 20-29 = 116 mL/min/1.73 sq.m. Ages 30-39 = 107 mL/min/1.73 sq.m. Ages 40-49 = 99 mL/min/1.73 sq.m. Ages 50-59 = 93 mL/min/1.73 sq.m. Ages 60-69 = 85 mL/min/1.73 sq.m. Ages 70+ = 75 mL/min/1.73 sq.m. Chronic Kidney Disease: Less than 60 mL/min/1.73 square meters End Stage Renal Disease: Less than 15 mL/min/1.73 square meters Performed By: #### C BC, LIP, GFR, ADIFF, CMP, MDW, MG, ANEU #### [address] [address] GFR Non- 72 ml/min/1.73sqm Normal [facility] Comment on above: Result Comment: GFR Population mean for , Non- Americans Ages 20-29 = 116 mL/min/1.73 sq.m. Ages 30-39 = 107 mL/min/1.73 sq.m. Ages 40-49 = 99 mL/min/1.73 sq.m. Ages 50-59 = 93 mL/min/1.73 sq.m. Ages 60-69 = 85 mL/min/1.73 sq.m. Ages 70+ = 75 mL/min/1.73 sq.m. Chronic Kidney Disease: Less than 60 mL/min/1.73 square meters End Stage Renal Disease: Less than 15 mL/min/1.73 square meters Performed By: #### C BC, LIP, GFR, ADIFF, CMP, MDW, MG, ANEU #### [address] [address] .MDWon 09-03-2024 Monocyte Distribution Width 16.04 Normal 0.00-20.00 [facility] Comment on above: Result Comment: For ED adult patients suspected of sepsis, MDW<=20.0 does not rule out sepsis or risk of sepsis Performed By: #### C BC, LIP, GFR, ADIFF, CMP, MDW, MG, ANEU #### [address] [address] .NEUABSon 09-03-2024 Neutrophil, Absolute 16.5 10 3/mcL High 2.3-8.1 A [facility] Comment on above: Performed By: #### C BC, LIP, GFR, ADIFF, CMP, MDW, MG, ANEU #### [address] [address] .Urinalysis Microscopic (AO) on 09-03-2024 UA Bacteria 1+ /hpf Abnormal [facility] Comment on above: Performed By: #### C BC, LIP, GFR, ADIFF, CMP, MDW, MG, ANEU #### [address] [address] UA RBC 0-5 Abnormal None Seen [facility] Comment on above: Performed By: #### C BC, LIP, GFR, ADIFF, CMP, MDW, MG, ANEU #### [address] [address] UA Squam Epithelial 5-10 Abnormal None Seen [facility] Comment on above: Performed By: #### C BC, LIP, GFR, ADIFF, CMP, MDW, MG, ANEU #### [address] [address] UA WBC 0-5 Abnormal None Seen [facility] Comment on above: Performed By: #### C BC, LIP, GFR, ADIFF, CMP, MDW, MG, ANEU #### [place] [address] CBCon 09-03-2024 Erythrocyte distribution width (RBC) [Ratio] 14.4 % Normal 11.5-15.5 [facility] Comment on above: Performed By: #### C BC, LIP, GFR, ADIFF, CMP, MDW, MG, ANEU #### [place] [address] Hematocrit (Bld) [Volume fraction] 43.8 % Normal 34.0-46.0 [facility] Comment on above: Performed By: #### C BC, LIP, GFR, ADIFF, CMP, MDW, MG, ANEU #### [place] [address] Hgb 14.0 G/dL Normal 12.0-16.0 [facility] Comment on above: Performed By: #### C BC, LIP, GFR, ADIFF, CMP, MDW, MG, ANEU #### [place] [address] MCH (RBC) [Entitic mass] 25.4 pg Low 27.0-33.0 [facility] Comment on above: Performed By: #### C BC, LIP, GFR, ADIFF, CMP, MDW, MG, ANEU #### [address] [address] MCHC 32.0 G/dL Normal 32.0-36.0 [facility] Comment on above: Performed By: #### C BC, LIP, GFR, ADIFF, CMP, MDW, MG, ANEU #### [address] [address] MCV (RBC) [Entitic vol] 79.3 fL Low 80.0-99.0 [facility] Comment on above: Performed By: #### C BC, LIP, GFR, ADIFF, CMP, MDW, MG, ANEU #### [address] [address] Platelet 367 10 3/mcL Normal 150-450 [facility] Comment on above: Performed By: #### C BC, LIP, GFR, ADIFF, CMP, MDW, MG, ANEU #### [address] [address] Platelet mean volume (Bld) [Entitic vol] 8.7 fL Normal 6.6-10.5 [facility] Comment on above: Performed By: #### C BC, LIP, GFR, ADIFF, CMP, MDW, MG, ANEU #### [address] [address] RBC 5.53 10 6/mcL High 4.10-5.30 [facility] Comment on above: Performed By: #### C BC, LIP, GFR, ADIFF, CMP, MDW, MG, ANEU #### [address] [address] WBC 18.1 10 3/mcL High 4.5-10.8 [facility] Comment on above: Performed By: #### C BC, LIP, GFR, ADIFF, CMP, MDW, MG, ANEU #### [address] [address] CMPon 09-03-2024 Albumin Level 3.3 G/dL Low 3.5-5.0 [facility] Comment on above: Performed By: #### C BC, LIP, GFR, ADIFF, CMP, MDW, MG, ANEU #### [place] [address] Albumin/Globulin [Mass ratio] 0.8 {ratio} Low 1.1-2.5 [facility] Comment on above: Performed By: #### C BC, LIP, GFR, ADIFF, CMP, MDW, MG, ANEU #### [place] [address] ALP [Catalytic activity/Vol] 126 U/L Normal 40-135 [facility] Comment on above: Performed By: #### C BC, LIP, GFR, ADIFF, CMP, MDW, MG, ANEU #### [place] [address] ALT [Catalytic activity/Vol] 48 U/L Normal 14-59 [facility] Comment on above: Performed By: #### C BC, LIP, GFR, ADIFF, CMP, MDW, MG, ANEU #### [place] [address] AST [Catalytic activity/Vol] 29 U/L Normal 10-40 [facility] Comment on above: Performed By: #### C BC, LIP, GFR, ADIFF, CMP, MDW, MG, ANEU #### [place] [id number] Bili Total 0.4 mg/dL Normal 0.2-1.0 [facility] Comment on above: Result Comment: Use of this assay is not recommended for patients undergoing treatment with eltrombopag due to the potential for falsely elevated results. Performed By: #### C BC, LIP, GFR, ADIFF, CMP, MDW, MG, ANEU #### [place] [address] BUN/Creatinine Ratio 14 ratio Normal 7-27 [facility] Comment on above: Performed By: #### C BC, LIP, GFR, ADIFF, CMP, MDW, MG, ANEU #### [address] [address] Calcium [Mass/Vol] 9.6 mg/dL Normal 8.4-10.2 [facility] Comment on above: Performed By: #### C BC, LIP, GFR, ADIFF, CMP, MDW, MG, ANEU #### [address] [address] Chloride [Moles/Vol] 102 mmol/L Normal 98-107 [facility] Comment on above: Performed By: #### C BC, LIP, GFR, ADIFF, CMP, MDW, MG, ANEU #### [address] [address] CO2 [Moles/Vol] 25 mmol/L Normal 22-29 [facility] Comment on above: Performed By: #### C BC, LIP, GFR, ADIFF, CMP, MDW, MG, ANEU #### [place] [address] Creatinine [Mass/Vol] 0.87 mg/dL Normal 0.55-1.02 [facility] Comment on above: Result Comment: Test ing performed on Siemens Dimension EXL analyzer using a modified kinetic Naye technique. Performed By: #### C BC, LIP, GFR, ADIFF, CMP, MDW, MG, ANEU #### [address] [address] Electrolyte Balance 7.0 mEq/L Normal 4.0-15.0 [facility] Comment on above: Performed By: #### C BC, LIP, GFR, ADIFF, CMP, MDW, MG, ANEU #### [address] [address] Globulin 4.4 G/dL Normal [facility] Comment on above: Performed By: #### C BC, LIP, GFR, ADIFF, CMP, MDW, MG, ANEU #### [address] [address] Glucose [Mass/Vol] 154 mg/dL High 70-105 [facility] Comment on above: Performed By: #### C BC, LIP, GFR, ADIFF, CMP, MDW, MG, ANEU #### [address] [address] Potassium [Moles/Vol] 3.8 mmol/L Normal 3.5-5.1 [facility] Comment on above: Performed By: #### C BC, LIP, GFR, ADIFF, CMP, MDW, MG, ANEU #### [address] [address] Sodium [Moles/Vol] 134 mmol/L Low 136-145 [facility] Comment on above: Performed By: #### C BC, LIP, GFR, ADIFF, CMP, MDW, MG, ANEU #### [address] [address] Total Protein 7.7 G/dL Normal 6.4-8.2 [facility] Comment on above: Performed By: #### C BC, LIP, GFR, ADIFF, CMP, MDW, MG, ANEU #### [address] [address] Urea nitrogen [Mass/Vol] 12 mg/dL Normal 7-18 [facility] Comment on above: Performed By: #### C BC, LIP, GFR, ADIFF, CMP, MDW, MG, ANEU #### [address] [address] LABORATORYOrdered By: SYSTEM SYSTEM on 09-03-2024 Albumin BCP dye [Mass/Vol] 3.3 G/dL Low 3.5 - 5.0 G/dL AO ADM SS Albumin/Globulin [Mass ratio] 0.8 {ratio} Low 1.1 - 2.5 ratio AO ADM SS ALP [Catalytic activity/Vol] 126 U/L Normal 40 - 135 U/L AO ADM SS ALT With P-5'-P [Catalytic activity/Vol] 48 U/L Normal 14 - 59 U/L AO ADM SS AST With P-5'-P [Catalytic activity/Vol] 29 U/L Normal 10 - 40 U/L AO ADM SS Basophils (Bld) [#/Vol] 0.0 103/mcL Normal 0.0 - 0.2 10^3/mcL AO Workflow SS Basophils/100 WBC (Bld) 0.2 % Normal 0.0 - 2.5 % AO Workflow SS Bilirubin [Mass/Vol] 0.4 mg/dL Normal 0.2 - 1 .0 mg/dL AO ADM SS Comment on above: Interpretive Data: U se of this assay is not recommended for patients undergoing treatment with eltrombopag due to the potential for falsely elevated results. Calcium [Mass/Vol] 9.6 mg/dL Normal 8.4 - 10. 2 mg/dL AO ADM SS Chloride [Moles/Vol] 102 mmol/L Normal 98 - 10 7 mmol/L AO ADM SS CO2 [Moles/Vol] 25 mmol/L Normal 22 - 29 mmol/L AO ADM SS Creatinine [Mass/Vol] 0.87 mg/dL Normal 0.55 - 1.02 mg/dL AO ADM SS Comment on above: Interpretive Data: T esting performed on Siemens Dimension EXL analyzer using a modified kinetic Naye technique. Electrolyte Balance 7.0 mEq/L Normal 4.0 - 15 .0 mEq/L AO ADM SS Eosinophil, Absolute 0.1 103/mcL Normal 0.0 - 0 .7 10^3/mcL AO Workflow SS Eosinophils/100 WBC (Bld) 0.4 % Normal 0.0 - 7.0 % AO Workflow SS Erythrocyte distribution width (RBC) [Ratio] 14.4 % Normal 11.5 - 15.5 % AO Workflow SS GFR/1.73 sq M.predicted among blacks MDRD (S/P/Bld) [Vol rate/Area] 88 ml/min/1.73sqm Invalid Interpretation Code AO Chemistry S Comment on above: Interpretive Data: GFR Population mean for , Non- Americans Ages 20-29 = 116 mL/min/1.73 sq.m. Ages 30-39 = 107 mL/min/1.73 sq.m. Ages 40-49 = 99 mL/min/1.73 sq.m. Ages 50-59 = 93 mL/min/1.73 sq.m. Ages 60-69 = 85 mL/min/1.73 sq.m. Ages 70+ = 75 mL/min/1.73 sq.m. Chronic Kidney Disease: Less than 60 mL/min/1.73 square meters End Stage Renal Disease: Less than 15 mL/min/1.73 square meters GFR/1.73 sq M.predicted among non-blacks MDRD (S/P/Bld) [Vol rate/Area] 72 ml/min/1.73sqm Invalid Interpretation Code AO Chemistry S Comment on above: Interpretive Data: GFR Population mean for , Non- Americans Ages 20-29 = 116 mL/min/1.73 sq.m. Ages 30-39 = 107 mL/min/1.73 sq.m. Ages 40-49 = 99 mL/min/1.73 sq.m. Ages 50-59 = 93 mL/min/1.73 sq.m. Ages 60-69 = 85 mL/min/1.73 sq.m. Ages 70+ = 75 mL/min/1.73 sq.m. Chronic Kidney Disease: Less than 60 mL/min/1.73 square meters End Stage Renal Disease: Less than 15 mL/min/1.73 square meters Globulin 4.4 G/dL Invalid Interpretation Code AO ADM SS Glucose [Mass/Vol] 154 mg/dL High 70 - 105 mg/dL AO ADM SS Hematocrit (Bld) [Volume fraction] 43.8 % Normal 34.0 - 46.0 % AO Workflow SS Hemoglobin (Bld) [Mass/Vol] 14.0 G/dL Normal 12.0 - 16.0 G/dL AO Workflow SS Lipase [Catalytic activity/Vol] 21 U/L Normal 16 - 77 U/L AO ADM SS Lymphocytes (Bld) [#/Vol] 0.8 103/mcL Low 0.9 - 4.3 10^3/mcL AO Workflow SS Lymphocytes/100 WBC (Bld) 4.3 % Low 20.0 - 40.0 % AO Workflow SS Magnesium [Mass/Vol] 1.8 mg/dL Normal 1.8 - 2 .4 mg/dL AO ADM SS MCH (RBC) [Entitic mass] 25.4 pg Low 27.0 - 33.0 pg AO Workflow SS MCHC 32.0 G/dL Normal 32.0 - 36.0 G/dL AO Workflow SS MCV (RBC) [Entitic vol] 79.3 fL Low 80.0 - 99.0 fL AO Workflow SS Monocyte distribution width Auto (Bld) [Entitic vol] 16.04 1 Normal 0.00 - 20.00 AO Workflow SS Comment on above: Result Comment: For ED adult patients suspected of sepsis, MDW<=20.0 does not rule out sepsis or risk of sepsis Monocytes (Bld) [#/Vol] 0.7 103/mcL Normal 0.1 - 1.4 10^3/mcL AO Workflow SS Monocytes/100 WBC (Bld) 3.9 % Normal 2.0 - 13.0 % AO Workflow SS Neutrophils (Bld) [#/Vol] 16.5 103/mcL High 2.3 - 8.1 10^3/mcL AO Workflow SS Neutrophils/100 WBC (Bld) 91.2 % High 50.0 - 75.0 % AO Workflow SS Platelet mean volume (Bld) [Entitic vol] 8.7 fL Normal 6.6 - 10.5 fL AO Workflow SS Platelets (Bld) [#/Vol] 367 103/mcL Normal 150 - 450 10^3/mcL AO Workflow SS Potassium [Moles/Vol] 3.8 mmol/L Normal 3.5 - 5.1 mmol/L AO ADM SS Protein [Mass/Vol] 7.7 G/dL Normal 6.4 - 8.2 G/dL AO ADM SS RBC (Bld) [#/Vol] 5.53 106/mcL High 4.10 - 5.3 0 10^6/mcL AO Workflow SS Sodium [Moles/Vol] 134 mmol/L Low 136 - 145 mmol/L AO ADM SS Urea nitrogen [Mass/Vol] 12 mg/dL Normal 7 - 18 mg/dL AO ADM SS Urea nitrogen/Creatinine [Mass ratio] 14 ratio Normal 7 - 27 ratio AO ADM SS WBC (Bld) [#/Vol] 18.1 103/mcL High 4.5 - 10.8 10^3/mcL AO Workflow SS LABORATORYOrdered By: Magnolia Palacios on 09-03-2024 Appearance (U) Clear (09/03/24 3:16 AM) Normal Clear AO Auto Urine SS Bacteria LM.HPF (Urine sed) [#/Area] 1 /[HPF] Invalid Interpretation Code AO Auto Urine SS Bilirubin Ql (U) Negative (09/03/24 3:16 AM) Normal Negative AO Auto Urine SS Color (U) Yellow (09/03/24 3:16 AM) Normal AO Auto Urine SS Glucose Test strip (U) [Mass/Vol] Negative Normal Negative AO Auto Urine SS HCG ( test) Ql Negative (09/03/24 3:16 AM) Normal AO Manual Urine SS Hemoglobin Auto test strip (U) [Mass/Vol] Trace *ABN* (09/03/24 3:16 AM) Invalid Interpretation Code Negative AO Auto Urine SS Ketones Ql (U) Negative Normal Negative AO Auto Ur ine SS test (u) int Not detected Invalid Interpretation Code AO Manual Urine SS UA Leuk Est Negative (09/03/24 3:16 AM) Normal Negative AO Auto Urine SS UA Nitrite Negative (09/03/24 3:16 AM) Normal Negative AO Auto Urine SS UA pH 5.5 (09/03/24 3:16 AM) Normal 5.0 - 8.0 AO Auto Urine SS UA Protein 100 mg/dL Invalid Interpretation Code Negative AO Auto Urine SS UA RBC 0-5 /HPF Invalid Interpretation Code None Seen AO Auto Urine SS UA Spec Grav >=1.030 *ABN* (09/03/24 3:16 AM) Invalid Interpretation Code 1.015-1.025 AO Auto Urine SS UA Specimen Type Clean Catch (09/03/24 3:16 AM) Normal AO Auto Urine SS UA Squam Epithelial 5-10 /HPF Invalid Interpretation Code None Seen AO Auto Urine SS UA Urobilinogen 0.2 E.U./dL Normal 0.2-1.0 AO Auto Urine SS WBC LM.HPF (Urine sed) [#/Area] 0-5 /HPF Invalid Interpretation Code None Seen AO Auto Urine SS LIPon 09-03-2024 Lipase Level 21 U/L Normal 16-77 [facility] Comment on above: Performed By: #### C BC, LIP, GFR, ADIFF, CMP, MDW, MG, ANEU #### [address] [address] MGon 09-03-2024 Magnesium [Mass/Vol] 1.8 mg/dL Normal 1.8-2.4 [facility] Comment on above: Performed By: #### C BC, LIP, GFR, ADIFF, CMP, MDW, MG, ANEU #### [address] [address] PREGUon 09-03-2024 HCG ( test) Ql (U) Negative Normal [facility] Comment on above: Performed By: #### U A, UAMICAO, PREGU #### [address] [address] test (u) int Not detected Invalid Interpretation Code [facility] Comment on above: Performed By: #### U A, UAMICAO, PREGU #### [address] [address] UAon 09-03-2024 Color (U) Yellow Normal [facility] Comment on above: Performed By: #### U A, UAMICAO, PREGU #### [place] [address] Glucose (U) [Mass/Vol] Negative Normal Negative [facility] Comment on above: Performed By: #### U A, UAMICAO, PREGU #### [place] [address] Ketones Ql (U) Negative Normal Negative [facility] Comment on above: Performed By: #### U A, UAMICAO, PREGU #### [place] [address] UA Appear Clear Normal Clear [facility] Comment on above: Performed By: #### U A, UAMICAO, PREGU #### [address] [address] UA Blood Trace Abnormal Negative [facility] Comment on above: Performed By: #### U A, UAMICAO, PREGU #### [address] [address] UA Leuk Est Negative Normal Negative [facility] Comment on above: Performed By: #### U A, UAMICAO, PREGU #### [place] [address] UA Nitrite Negative Normal Negative [facility] Comment on above: Performed By: #### U A, UAMICAO, PREGU #### [place] [address] UA pH 5.5 Normal 5.0 - 8.0 [facility] Comment on above: Performed By: #### U A, UAMICAO, PREGU #### [address] [address] UA Protein 100 mg/dL Abnormal Negative [facility] Comment on above: Performed By: #### U A, UAMICAO, PREGU #### [address] [address] UA Spec Grav >=1.030 Abnormal 1.015-1.025 [facility] Comment on above: Performed By: #### U A, UAMICAO, PREGU #### [address] [address] UA Specimen Type Clean Catch Normal [facility] Comment on above: Performed By: #### U A, UAMICAO, PREGU #### [address] [address] UA Urobilinogen 0.2 E.U./dL Normal 0.2-1.0 [facility] Comment on above: Performed By: #### U A, UAMICAO, PREGU #### [address] [address] Urobilinogen (U) [Mass/Vol] Negative Normal Negative [facility] Comment on above: Performed By: #### U A, UAMICAO, PREGU #### [address] [address] Serum or plasma progesterone measurement (mass/volume)Ordered By: Hayde Luna on 08-04-2023 Progesterone [Mass/Vol] 10.74 ng/mL See Comment [facility] Comment on above: Progesterone Referen ce Table: UNITS Female: Follicular 0.15 - 1.40 ng/mL Luteal 3.34 - 25.56 ng/mL Mid-luteal 4.44 - 28.03 ng/mL Postmenopausal 0.0 - 0.73 ng/mL : 1st Trimester 11.22 - 90.00 ng/mL 2nd Trimester 25.55 - 89.40 ng/mL 3rd Trimester 48.40 -422.50 ng/mL Serum or plasma progesterone measurement (mass/volume)Ordered By: Hayde Luna on 07-05-2023 Progesterone [Mass/Vol] 11.37 ng/mL See Comment [facility] Comment on above: Progesterone Referen ce Table: UNITS Female: Follicular 0.15 - 1.40 ng/mL Luteal 3.34 - 25.56 ng/mL Mid-luteal 4.44 - 28.03 ng/mL Postmenopausal 0.0 - 0.73 ng/mL : 1st Trimester 11.22 - 90.00 ng/mL 2nd Trimester 25.55 - 89.40 ng/mL 3rd Trimester 48.40 -422.50 ng/mL Serum or plasma progesterone measurement (mass/volume)Ordered By: Hayde Luna on 05-14-2023 Progesterone [Mass/Vol] 10.52 ng/mL See Comment [facility] Comment on above: Progesterone Referen ce Table: UNITS Female: Follicular 0.15 - 1.40 ng/mL Luteal 3.34 - 25.56 ng/mL Mid-luteal 4.44 - 28.03 ng/mL Postmenopausal 0.0 - 0.73 ng/mL : 1st Trimester 11.22 - 90.00 ng/mL 2nd Trimester 25.55 - 89.40 ng/mL 3rd Trimester 48.40 -422.50 ng/mL Serum or plasma progesterone measurement (mass/volume)Ordered By: Hayde Luna on 04-15-2023 Progesterone [Mass/Vol] 17.05 ng/mL See Comment [facility] Comment on above: Progesterone Referen ce Table: UNITS Female: Follicular 0.15 - 1.40 ng/mL Luteal 3.34 - 25.56 ng/mL Mid-luteal 4.44 - 28.03 ng/mL Postmenopausal 0.0 - 0.73 ng/mL : 1st Trimester 11.22 - 90.00 ng/mL 2nd Trimester 25.55 - 89.40 ng/mL 3rd Trimester 48.40 -422.50 ng/mL No Panel InformationOrdered By: Hayde Luna on 03-18-2023 Vitamin D 25-Hydroxy 12.2 ng/mL [facility] Comment on above: Vitamin D 25(OH) Sta tus Range Deficiency <20 ng/mL (50nmol/L) Insufficiency 20 - 30 ng/mL (50 - 75 nmol/L) Sufficiency 30 - 100 ng/mL (75 - 250 nmol/L) Toxicity >100 ng/mL (>250 nmol/L) Serum or plasma progesterone measurement (mass/volume)Ordered By: Hayde Luna on 03-18-2023 Progesterone [Mass/Vol] 10.97 ng/mL See Comment [facility] Comment on above: Progesterone Referen ce Table: UNITS Female: Follicular 0.15 - 1.40 ng/mL Luteal 3.34 - 25.56 ng/mL Mid-luteal 4.44 - 28.03 ng/mL Postmenopausal 0.0 - 0.73 ng/mL : 1st Trimester 11.22 - 90.00 ng/mL 2nd Trimester 25.55 - 89.40 ng/mL 3rd Trimester 48.40 -422.50 ng/mL Whole blood hemoglobin A1c/t otal hemoglobin ratio (mass fraction)Ordered By: Hayde Luna on 03-18-2023 HbA1c (Bld) [Mass fraction] 5.8 % 3.8-5.6 [facility] Comment on above: Normal < 5.7 % Predi abetic 5.7 - 6.4 % Diabetic >or= 6.5 % Please note range changes. Basophil percentageOrdered B y: Dr. Luna on 01-17-2023 Bilirubin [Mass/Vol] 0.20 mg/dL 0.20-1.00 [facility] Comment on above: For patients on eltr ombopag therapy, use of Dimension [place] TBIL is not recommended. Chloride [Moles/Vol] 108 mmol/L 98-107 [facility] Cholesterol [Mass/Vol] 177 mg/dL <200 [facility] Comment on above: <200 mg/dL Desirable 200-240 mg/dL Borderline >240 mg/dL High Risk Glucose [Mass/Vol] 91 mg/dL 74-106 [facility] Potassium [Moles/Vol] 3.9 mmol/L 3.5-5.1 [facility] Protein [Mass/Vol] 7.1 g/dL 6.4-8.2 [facility] Sodium [Moles/Vol] 137 mmol/L 136-145 [facility] Triglyceride [Mass/Vol] 124 mg/dL <199 [facility] Comment on above: The drugs N-Acetylcy steine and Metamizole may falsely depress this assay.Serum Triglycerides Reference Interval Normal <150 mg/dL Borderline high 150 - 199 mg/dL High 200 - 499 mg/dL Very High > or = 500 mg/dL Laboratory - Chemistry and C hemistry - challengeOrdered By: Dr. Luna on 01-17-2023 ALP [Catalytic activity/Vol] 95 U/L 45-117 [facility] ALT [Catalytic activity/Vol] 18 U/L 13-56 [facility] CO2 [Moles/Vol] 25.0 mmol/L 21.0-32.0 [facility] Globulin (S) [Mass/Vol] 4.4 g/dL 2.2-4.2 [facility] Urea nitrogen/Creatinine [Mass ratio] 15.2 mg/mg 10-20 [facility] No Panel InformationOrdered By: Dr. Luna on 01-17-2023 Estimated GFR (MDRD) Amer 130 mL/min >60 [facility] Comment on above: GFR Calc Estimated GFR (MDRD) Non-Af Amer 107 mL/min >60 [facility] Comment on above: Non- GFR Calc Thyroid Stimulating Hormone (TSH) 1.54 uIU/mL 0.358-3.74 [facility] Vitamin D 25-Hydroxy 13.5 ng/mL [facility] Comment on above: Vitamin D 25(OH) Sta tus Range Deficiency <20 ng/mL (50nmol/L) Insufficiency 20 - 30 ng/mL (50 - 75 nmol/L) Sufficiency 30 - 100 ng/mL (75 - 250 nmol/L) Toxicity >100 ng/mL (>250 nmol/L) Serum or plasma albumin garrick urement (mass/volume)Ordered By: Dr. Luna on 01-17-2023 Albumin [Mass/Vol] 2.7 g/dL 3.2-5.0 [facility] Serum or plasma albumin/glob ulin mass ratioOrdered By: Dr. Luna on 01-17-2023 Albumin/Globulin [Mass ratio] 0.6 {ratio} 0.9-2.4 [facility] Serum or plasma calcium garrick urement (mass/volume)Ordered By: Dr. Luna on 01-17-2023 Calcium [Mass/Vol] 8.7 mg/dL 8.5-10.1 [facility] Serum or plasma cholesterol in HDL measurement (mass/volume)Ordered By: Dr. Luna on 01-17-2023 Cholesterol in HDL [Mass/Vol] 52 mg/dL >40 [facility] Comment on above: The drugs N-Acetylcy steine and Metamizole may falsely depress this assay. Reference Range HDL <40 mg/dL Low HDL Cholesterol HDL >or= 60 mg/dL High HDL Cholesterol Serum or plasma cholesterol in VLDL measurement (mass/volume)Ordered By: Dr. Luna on 01-17-2023 Cholesterol in VLDL [Mass/Vol] 25 mg/dL 5-40 [facility] Serum or plasma creatinine m easurement (mass/volume)Ordered By: Dr. Luna on 01-17-2023 Creatinine [Mass/Vol] 0.66 mg/dL 0.55-1.02 [facility] Comment on above: The validity of the calculated GFR & GFRAA in patients over 70 years has not been determined. Clinical correlation is essential. Serum or plasma low density lipoprotein (LDL) cholesterol measurement (mass/volume)Ordered By: Dr. Luna on 01-17-2023 Cholesterol in LDL [Mass/Vol] 100 mg/dL 0-130 [facility] Serum or plasma urea nitroge n measurement (mass/volume)Ordered By: Dr. Luna on 01-17-2023 Urea nitrogen [Mass/Vol] 10 mg/dL 7-18 [facility] Thin prep Papanicolaou smear with manual screeningOrdered By: Dr. Luna on 01-17-2023 Thin prep Papanicolaou smear with manual screening 11 U/L 15-37 [facility] Thin prep Papanicolaou smear with manual screening 4 5-15 [facility] Whole blood hemoglobin A1c/t otal hemoglobin ratio (mass fraction)Ordered By: Dr. Luna on 01-17-2023 HbA1c (Bld) [Mass fraction] 5.3 % 3.8-5.6 [facility] Comment on above: Normal < 5.7 % Predi abetic 5.7 - 6.4 % Diabetic >or= 6.5 % Please note range changes. Bacteria identified Cx Nom ( Wound)Ordered By: Dr. Luna on 2022 Wound Culture Negative [facility] Wound Culture Positive [facility] Gram stain for investigation of transfusion reactionOrdered By: Dr. Luna on 08-17-2022 Microscopic observation Gram stain Nom (Unsp spec) [facility] Basophil percentageOrdered B y: Dr. Luna on 07-19-2022 Cholesterol [Mass/Vol] 213 mg/dL <200 [facility] Comment on above: <200 mg/dL Desirable 200-240 mg/dL Borderline >240 mg/dL High Risk Glucose [Mass/Vol] 96 mg/dL 74-106 [facility] Triglyceride [Mass/Vol] 173 mg/dL <199 [facility] Comment on above: The drugs N-Acetylcy steine and Metamizole may falsely depress this assay.Serum Triglycerides Reference Interval Normal <150 mg/dL Borderline high 150 - 199 mg/dL High 200 - 499 mg/dL Very High > or = 500 mg/dL Serum or plasma cholesterol in HDL measurement (mass/volume)Ordered By: Dr. Luna on 07-19-2022 Cholesterol in HDL [Mass/Vol] 43 mg/dL >40 [facility] Comment on above: The drugs N-Acetylcy steine and Metamizole may falsely depress this assay. Reference Range HDL <40 mg/dL Low HDL Cholesterol HDL >or= 60 mg/dL High HDL Cholesterol Serum or plasma cholesterol in VLDL measurement (mass/volume)Ordered By: Dr. Luna on 07-19-2022 Cholesterol in VLDL [Mass/Vol] 35 mg/dL 5-40 [facility] Serum or plasma low density lipoprotein (LDL) cholesterol measurement (mass/volume)Ordered By: Dr. Luna on 07-19-2022 Cholesterol in LDL [Mass/Vol] 135 mg/dL 0-130 [facility] Whole blood hemoglobin A1c/t otal hemoglobin ratio (mass fraction)Ordered By: Dr. Luna on 07-19-2022 HbA1c (Bld) [Mass fraction] 5.7 % 3.8-5.6 [facility] Comment on above: Normal < 5.7 % Predi abetic 5.7 - 6.4 % Diabetic >or= 6.5 % Please note range changes. 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 This test has been authorized by FDA under an Emergency Use Authorization (EUA). This test has been validated in accordance with the FDA's Guidance Document Policy for Diagnostics Testing in Laboratories Certified to Perform High Complexity Testing under CLIA prior to Emergency use Authorization for Coronavirus Disease 2019 during the Public Health Emergency issued on September 29, 2019. Performed By: [facility] [address] [place] [address] [employer]: Snacho Flores III, M.D. CLIA#: [id number] Phone#: Performed By: #### C OVID #### [place] [address] COVID 19 Source PERFORMANCE IMPROVEMENT CONSULTANT See Below [facility] ([place]) Comment on above: Result Comment: Naso pharyngeal Swab Performed By: [place] [id number] [employer]: Sancho Flores III, M.D. CLIA#: [id number] Phone#: Performed By: #### C OVID #### [place] [address] Date of Onset 20200624 [facility] ([place]) Comment on above: Performed By: #### C OVID #### [place] [address] Employed in Healthcare Unknown [facility] ([place]) Comment on above: Performed By: #### C OVID #### [place] [address] First Test Unknown [facility] ([place]) Comment on above: Performed By: #### C OVID #### [place] [address] Hospitalized Unknown [facility] ([place]) Comment on above: Performed By: #### C OVID #### [place] [id number] ICU Unknown [facility] ([place]) Comment on above: Performed By: #### C OVID #### [place] [address] Unknown [facility] ([place]) Comment on above: Performed By: #### C OVID #### [place] [address] Resides in Congregate Care Setting Unknown [facility] ([place]) Comment on above: Performed By: #### C OVID #### [place] [address] Symptomatic as Defined by CDC Unknown [facility] ([place]) Comment on above: Performed By: #### C OVID #### [place] [address] COVIDon 06-06-2020 COVID 19 Result 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 This test was developed and its performance characteristics determined by [facility] [place]. This test has been authorized by FDA under an Emergency Use Authorization (EUA). This test has been validated in accordance with the FDA's Guidance Document Policy for Diagnostics Testing in Laboratories Certified to Perform High Complexity Testing under CLIA prior to Emergency use Authorization for Coronavirus Disease 2019 during the Public Health Emergency issued on September 29, 2019. Performed By: [facility] [place] [address] [employer]: Sancho Flores III, M.D. CLIA#: [id number] Phone#: Performed By: #### C OVID #### [place] [address] COVID 19 Source PERFORMANCE IMPROVEMENT CONSULTANT See Below [facility] ([place]) Comment on above: Result Comment: Naso pharyngeal Swab Performed By: [facility] [address] [place] [address] [employer]: Sancho Flores III, M.D. CLIA#: [id number] Phone#: Performed By: #### C OVID #### [place] [address] Date of Onset 20200601 [facility] ([place]) Comment on above: Performed By: #### C OVID #### [place] [address] Employed in Healthcare No [facility] ([place]) Comment on above: Performed By: #### C OVID #### [facility] [address] [place] [address] First Test Yes [facility] ([place]) Comment on above: Performed By: #### C OVID #### [facility] [address] [place] [address] Hospitalized No [facility] ([place]) Comment on above: Performed By: #### C OVID #### [place] [address] ICU No [facility] ([place]) Comment on above: Performed By: #### C OVID #### [place] [address] Not [facility] ([place]) Comment on above: Performed By: #### C OVID #### [place] [address] Resides in Congregate Care Setting No [facility] ([place]) Comment on above: Performed By: #### C OVID #### [place] [address] Symptomatic as Defined by CDC Yes [facility] ([place]) Comment on above: Performed By: #### C OVID #### [place] [address] Vital Signs Date Time Vital Sign Value Performing Clinician Facility 12-07-2024 10:19040 Body height 162.[address] Hazel Eason MD Work Phone: [facility] 12-07-2024 10:12040 Body mass index (BMI) [Ratio] 51.5 kg/m2 Dr. Hazel Eason MD Work Phone: [facility] 12-07-2024 10:12040 Body weight 136.[address] Hazel Eason MD Work Phone: [facility] 12-07-2024 10:12-0400 Diastolic blood pressure 102 mm[Hg] Dr. Hazel Eason MD Work Phone: [facility] 12-07-2024 10:12-0400 Systolic blood pressure 159 mm[Hg] Dr. Hazel Eason MD Work Phone: [facility] 09-03-2024 05:00-0500 Diastolic Blood Pressure Non-Invasive 91 mm[Hg] DOMINGO FROMMELT DO [facility] 09-03-2024 05:00-0500 Heart rate 86 /min DOMINGO FROMMELT DO [facility] 09-03-2024 05:00-0500 Respiratory rate 18 /min DOMINGO FROMMELT DO [facility] 09-03-2024 05:00-0500 Systolic Blood Pressure Non-Invasive 136 mm[Hg] DOMINGO FROMMELT DO [facility] 09-03-2024 02:29-0500 Body temperature 97.88 [degF] DOMINGO FROMMELT DO [facility] 09-03-2024 02:29-0500 Diastolic Blood Pressure Non-Invasive 86 mm[Hg] DOMINGO FROMMELT DO [facility] 09-03-2024 02:29-0500 Heart rate 97 /min DOMINGO FROMMELT DO [facility] 09-03-2024 02:29-0500 Respiratory rate 16 /min DOMINGO FROMMELT DO [facility] 09-03-2024 02:29-0500 Systolic Blood Pressure Non-Invasive 125 mm[Hg] DOMINGO FROMMELT DO [facility] 03-21-2023 08:24-0400 Body height 162.56 cm No Primary Care Physician [facility] 03-21-2023 08:24-0400 Body mass index (BMI) [Ratio] 49.2 kg/m2 No Primary Care Physician [facility] 03-21-2023 08:24-0400 Body weight 130.23 kg No Primary Care Physician [facility] 03-21-2023 08:24-0400 Diastolic blood pressure 79 mm[Hg] No Primary Care Physician [facility] 03-21-2023 08:24-0400 Systolic blood pressure 133 mm[Hg] No Primary Care Physician [facility] 01-26-2023 08:58-0400 Body mass index (BMI) [Ratio] 49.8 kg/m2 No Primary Care Physician [facility] 01-26-2023 08:58-0400 Body temperature 97.3 [degF] No Primary Care Physician [facility] 01-26-2023 08:58-0400 Body weight 131.54 kg No Primary Care Physician [facility] 01-26-2023 08:58-0400 Diastolic blood pressure 82 mm[Hg] No Primary Care Physician [facility] 01-26-2023 08:58-0400 Heart rate 73 /min No Primary Care Physician [facility] 01-26-2023 08:58-0400 Respiratory rate 18 /min No Primary Care Physician [facility] 01-26-2023 08:58-0400 SaO2% (BldA) [Mass fraction] 98 % No Primary Care Physician [facility] 01-26-2023 08:58-0400 Systolic blood pressure 130 mm[Hg] No Primary Care Physician [facility] 01-17-2023 15:38-0400 Body height 162.56 cm No Primary Care Physician [facility] 01-17-2023 15:38-0400 Body mass index (BMI) [Ratio] 49.1 kg/m2 No Primary Care Physician [facility] 01-17-2023 15:38-0400 Body weight 129.72 kg No Primary Care Physician [facility] 01-17-2023 15:38-0400 Diastolic blood pressure 90 mm[Hg] No Primary Care Physician [facility] 01-17-2023 15:38-0400 Systolic blood pressure 150 mm[Hg] No Primary Care Physician [facility] 12-13-2022 09:49-0400 Body mass index (BMI) [Ratio] 48.4 kg/m2 No Primary Care Physician [facility] 12-13-2022 09:49-0400 Body weight 127.91 kg No Primary Care Physician [facility] 12-13-2022 09:49-0400 Diastolic blood pressure 86 mm[Hg] No Primary Care Physician [facility] 12-13-2022 09:49-0400 Heart rate 81 /min No Primary Care Physician [facility] 12-13-2022 09:49-0400 Systolic blood pressure 130 mm[Hg] No Primary Care Physician [facility] 11-29-2022 13:41-0400 Body height 162.56 cm No Primary Care Physician [facility] 09-27-2022 16:06-0500 Body mass index (BMI) [Ratio] 48.2 kg/m2 No Primary Care Physician [facility] 09-27-2022 16:06-0500 Body weight 127.45 kg No Primary Care Physician [facility] 09-27-2022 16:06-0500 Diastolic blood pressure 90 mm[Hg] No Primary Care Physician [facility] 09-27-2022 16:06-0500 Systolic blood pressure 140 mm[Hg] No Primary Care Physician [facility] 09-27-2022 15:37-0500 Body mass index (BMI) [Ratio] 48.1 kg/m2 No Primary Care Physician [facility] 09-27-2022 15:37-0500 Body weight 127.23 kg No Primary Care Physician [facility] 09-27-2022 15:37-0500 Diastolic blood pressure 83 mm[Hg] No Primary Care Physician [facility] 09-27-2022 15:37-0500 Systolic blood pressure 125 mm[Hg] No Primary Care Physician [facility] 08-20-2022 09:31-0500 Body height 162.56 cm No Primary Care Physician [facility] 08-20-2022 09:31-0500 Body mass index (BMI) [Ratio] 48.8 kg/m2 No Primary Care Physician [facility] 08-20-2022 09:31-0500 Body temperature 97.6 [degF] No Primary Care Physician [facility] 08-20-2022 09:31-0500 Body weight 128.99 kg No Primary Care Physician [facility] 08-20-2022 09:31-0500 Diastolic blood pressure 84 mm[Hg] No Primary Care Physician [facility] 08-20-2022 09:31-0500 Heart rate 64 /min No Primary Care Physician [facility] 08-20-2022 09:31-0500 Respiratory rate 18 /min No Primary Care Physician [facility] 08-20-2022 09:31-0500 SaO2% (BldA) [Mass fraction] 99 % No Primary Care Physician [facility] 08-20-2022 09:31-0500 Systolic blood pressure 137 mm[Hg] No Primary Care Physician [facility] 08-16-2022 14:39-0500 Body mass index (BMI) [Ratio] 48.2 kg/m2 No Primary Care Physician [facility] 08-16-2022 14:39-0500 Body weight 127.51 kg No Primary Care Physician [facility] 08-16-2022 14:39-0500 Diastolic blood pressure 83 mm[Hg] No Primary Care Physician [facility] 08-16-2022 14:39-0500 Systolic blood pressure 143 mm[Hg] No Primary Care Physician [facility] 07-19-2022 09:21-0500 Body height 162.56 cm No Primary Care Physician [facility] Work Phone: 07-19-2022 09:21-0500 Body mass index (BMI) [Ratio] 47.7 kg/m2 No Primary Care Physician [facility] 07-19-2022 09:21-0500 Body weight 126.09 kg No Primary Care Physician [facility] 07-19-2022 09:21-0500 Diastolic blood pressure 67 mm[Hg] No Primary Care Physician [facility] 07-19-2022 09:21-0500 Heart rate 65 /min No Primary Care Physician [facility] 07-19-2022 09:21-0500 Systolic blood pressure 116 mm[Hg] No Primary Care Physician [facility] 06-28-2022 14:49-0500 Body mass index (BMI) [Ratio] 48.9 kg/m2 No Primary Care Physician [facility] 06-28-2022 14:49-0500 Body weight 129.27 kg No Primary Care Physician [facility] 06-28-2022 14:49-0500 Diastolic blood pressure 83 mm[Hg] No Primary Care Physician [facility] 06-28-2022 14:49-0500 Systolic blood pressure 134 mm[Hg] No Primary Care Physician [facility] Encounters Encounter Date Encounter Type Care Provider Facility Start: 12-17-2024 End: 12-17-[address] Hazel Eason MD Work Phone: [facility] Work Phone: Start: 12-17-2024 End: 12-17-[address] Hayde Luna MD -[facility] Work Phone: Start: 12-17-2024 End: 12-17-2024 ambulatory Hayde Luna Facility:[facility] Start: 12-07-2024 End: 12-07-[address] Hayde Luna MD -[facility] Work Phone: Start: 12-07-2024 End: 12-07-2024 ambulatory Hayde Luna [facility] Start: 09-03-2024 End: 09-03-2024 Emergency department patient visit DOMINGO CLEMENTS DO [facility] Start: 08-04-2023 End: 08-04-2023 ambulatory [facility] Work Phone: Start: 08-04-2023 End: 08-04-2023 Patient encounter procedure [facility] Start: 07-05-2023 End: 07-05-2023 ambulatory No Primary Care Physician [facility] Work Phone: Start: 07-05-2023 End: 07-05-2023 Patient encounter procedure No Primary Care Physician [facility] Start: 05-14-2023 End: 05-14-2023 ambulatory No Primary Care Physician [facility] Work Phone: Start: 05-14-2023 End: 05-14-2023 Patient encounter procedure No Primary Care Physician [facility] Work Phone: Start: 04-15-2023 End: 04-15-2023 ambulatory No Primary Care Physician [facility] Work Phone: Start: 04-15-2023 End: 04-15-2023 Patient encounter procedure No Primary Care Physician [facility] Start: 03-21-2023 End: 03-21-2023 ambulatory No Primary Care Physician [facility] Work Phone: Start: 03-21-2023 End: 03-21-2023 Patient encounter procedure No Primary Care Physician [facility] Work Phone: Start: 03-21-2023 End: 03-21-2023 Patient encounter procedure No Primary Care Physician [facility] Work Phone: Start: 03-18-2023 End: 03-18-2023 Patient encounter procedure No Primary Care Physician [facility] Start: 01-26-2023 End: 01-26-2023 Patient encounter procedure No Primary Care Physician [facility] Work Phone: Start: 01-17-2023 End: 01-17-2023 Patient encounter procedure No Primary Care Physician [facility] Start: 01-17-2023 End: 01-17-2023 ambulatory No Primary Care Physician [facility] Work Phone: Start: 01-17-2023 End: 01-17-2023 Patient encounter procedure No Primary Care Physician [facility] Start: 12-13-2022 End: 12-13-2022 Patient encounter procedure No Primary Care Physician [facility] Start: 11-29-2022 End: 11-29-2022 ambulatory No Primary Care Physician [facility] Work Phone: Start: 11-29-2022 End: 11-29-2022 Patient encounter procedure No Primary Care Physician [facility] Start: 11-29-2022 End: 11-29-2022 Patient encounter procedure No Primary Care Physician [facility] Start: 09-27-2022 End: 09-27-2022 Patient encounter procedure No Primary Care Physician [facility] Start: 08-20-2022 End: 08-20-2022 ambulatory No Primary Care Physician [facility] Work Phone: Start: 08-20-2022 End: 08-20-2022 Patient encounter procedure No Primary Care Physician [facility] Start: 2022 End: 2022 ambulatory No Primary Care Physician [facility] Work Phone: Start: 2022 End: 2022 Patient encounter procedure No Primary Care Physician [facility] Start: 08-16-2022 End: 08-16-2022 ambulatory No Primary Care Physician [facility] Work Phone: Start: 08-16-2022 End: 08-16-2022 Patient encounter procedure No Primary Care Physician [facility] Start: 08-16-2022 End: 08-16-2022 Patient encounter procedure No Primary Care Physician [facility] Start: 07-19-2022 End: 07-19-2022 ambulatory No Primary Care Physician [facility] Work Phone: Start: 07-19-2022 End: 07-19-2022 Patient encounter procedure No Primary Care Physician [facility] Start: 06-28-2022 End: 06-28-2022 Patient encounter procedure No Primary Care Physician [facility] Procedures Date Procedure Procedure Detail Performing Clinician Start: 12-17-[address] Rashaun Eason MD Work Phone: Start: 2022 Bilateral mammography N o Primary Care Physician Start: 2022 Ultrasonography of breast No Primary Care Physician Start: 08-01-2003 Adenoid excision RIGOBERTO CLEMENTS DO Start: 08-01-2003 Tonsillectomy DOMINGO NOGUERA DO Investigation of tra nsfusion reaction No Primary Care Physician Microbial culture, routine N o Primary Care Physician Plan of Treatment Date Care Activity Detail Author Hemoglobin A1c/Hemoglobin.total in Blood [facility] Hemoglobin A1c/Hemoglobin.total in Blood [facility] Lipid 1996 panel - Serum or Plasma [facility] Progesterone [Mass/volume] in Serum or Pl asma [facility] Thyroid stimulating hormone measurement [facility] Vitamin D, 1,25-dihydroxy measurement [facility] Immunizations Immunization Date Immunization Notes Care Provider Fa naity 04-10-2019 tetanus toxoid, redu talita diphtheria toxoid, and acellular pertussis vaccine, adsorbed No Primary Care Physician [facility] 08-16-2008 tetanus toxoid, redu talita diphtheria toxoid, and acellular pertussis vaccine, adsorbed No Primary Care Physician [facility] Payers Date Payer Category Payer Self-pay [id number] 2020 Unknown [id number] 2014 Unknown [employer] [id number] 1985 Unknown [id number] Unknown [employer] [id number] Unknown [id number] [id number] Unknown [id number] Social History Date Type Detail Facility Start: 07-19-2022 End: 01-26-2023 Tobacco smoking status NHIS Unknown if ever smoked [facility] Start: 1985 Sex Assigned At Female W [facility] Start: 11-04-2019 End: 01-26-2023 Tobacco smoking status Never smoked tobacco (finding) [facility] Sexual Orientation [facility] Start: 03-19-2018 Sex Female (finding) [facility] Functional Status Date Assessment Result Facility 09-03-2024 Functional Status Independent [facility] 09-03-2024 Functional Status Standard Safet y ID band on, Allergy Band on, Call device within reach, Bed in low position, Wheels locked, Upper/Half-Length side-rails up, Safety level maintained [facility] Mental Status Date Assessment Result Facility 09-03-2024 Mental Status Orientation Oriented x [facility] 09-03-2024 Mental Status [facility] Clinical Notes 07-27-2021 to 12-19-2024 Note Date & Type Note Facility 12-19-2024 Radiology Diagnostic study note [facility] Imaging Services [address] [place], [place] [address] Pelvic w/ Transvaginal MR#: [id number] Acct: [id number] Name: LETITIA HICKMAN Rep #: [id number] : 1985 F 39 From: Victorino Garibay MD PCP: Dr. Hazel Eason MD Status: REG CLI Study:Pelvic w/ Transvaginal Date of Exam: 12/17/24 Exam# [id number] Ordering Dr: Hayde Liriano MD PROCEDURE: PELVIC W/ TRANSVAGINAL REASON FOR EXAM: CYCLICAL PELVIC PAIN TECHNIQUE: Transabdominal and transvaginal pelvic ultrasound COMPARISON: None FINDINGS: LMP: November 14, 2024. Measurements: Uterus: 10.1 cm x 5.6 cm x 4.9 cm with a volume of 145.2 mL Endometrial Thickness: 1.46 cm. Hyperechoic. Right Ovary: 4.1 cm x 2.8 cm x 2.1 cm with a volume of 9.4 mL. Left Ovary: 3.7 cm x 2.2 cm x 2 cm with a volume of 8.61 mL. TRANSABDOMINAL: Uterus: There is evidence of a 2.8 cm x 3 cm x 2.4 cm uterine fibroid along the anterior wall of the uterus. Endometrium: The endometrium is thickened and measures 1.4 cm. Right ovary: Normal size and echotexture. Left ovary: Normal size and echotexture. Other: No large pelvic mass identified. Transvaginal sonography was performed to better visualize the endometrium. TRANSVAGINAL: Uterus: Anteverted. Uterine fibroid as described. Endometrium: Endometrial thickening measuring 1.4 cm. Right ovary: Normal size and echotexture. Left ovary: Normal size and echotexture. Other adnexal findings: None. Cul-de-sac: No free intraperitoneal fluid identified. Tenderness: No tenderness US/Pelvic w/ Transvaginal IMPRESSION: Enlarged fibroid uterus. Endometrial thickening measuring 1.4 cm. Reading Location: [place] [address] CC: Dr. Hazel Eason MD; Dr. Hayde Luna MD ~ Scooping Machine Tender: Signed [facility] 12-07-2024 Evaluation note Diagnosis Onset Date Resolution Cyclical pelvic pain acute December 07, 2024 10:05am [facility] Work Phone: [phone]) 225-744802-03-2025 Hospital Discharge instructions Patient Education 09/03/2024 03:42:21 Vomiting and Diarrhea, Nonspecific (Adult) Nonspecific Vomiting and Diarrhea (Adult) Vomiting and diarrhea can have many causes, including: Helping your body get rid of harmful substances Gastroenteritis caused by viruses, parasites, bacteria, or toxins. Allergy to or side effect of a food or medicine Severe stress or worry (anxiety) Other illnesses It is often hard to pinpoint an exact cause, even with testing. Vomiting and diarrhea often go awaywithin a day or two without problems. If they continue, though, they can lead to too much loss of fluid (dehydration). This can be serious if not treated. Home care Medicines You may use acetaminophen or NSAID medicines like ibuprofen or naproxen to control fever, unless another medicine was prescribed. If you have chronic liver or kidney disease, talk with your healthcare provider before using these medicines. Also talk with your provider if you've had a stomach ulcer or gastrointestinal bleeding. Don't give aspirin to anyone under 18 years of age who is ill with a fever because it may cause severe disease or . Don't use NSAID medicines if you are already taking one for another condition (like arthritis) or are on aspirin (such as for heart disease or after a stroke) Jrtw-wii-nuqwior medicines for diarrhea, nausea, and vomiting are generally OK unless you have bleeding, fever, or severe abdominal pain. General care If symptoms are severe, rest at home for the next 24 hours, or until you are feeling better. Washing your hands with soap and water, or using alcohol-based hand packing house supervisor is the best way to stop the spread of infection. Wash your hands after touching anyone who is sick. Wash your hands after using the toilet and before meals. Clean the toilet after each use. Dry your hands with a single use towel. Caffeine, tobacco, and alcohol can make the diarrhea, cramping, and pain worse. Remember, caffeine not only is in coffee, but also is in chocolate, some energy drinks, and teas. Diet Water and clear liquids are important so you don't get dehydrated. Drink a small amount at a time. Don't guzzle down the drinks. That may increase your nausea, make cramping worse, and cause the drinks to come back up. Sports drinks may also help if you are healthy and not too dehydrated. They have too much sugar andnot enough electrolytes and can sometimes make things worse. Also, don't drink beverages that are too acidic, like orange juice and grape juice. If you are very dehydrated, commercially available products called oral rehydration solutions are best. Food Don't force yourself to eat, especially if you have cramps, diarrhea, or vomiting. Eat just a little at a time, and then wait a few minutes before you try to eat more. Don't eat fatty, greasy, spicy, or fried foods. Don't eat dairy products if you have diarrhea. They can make it worse. During the first 24 hours (the first full day), follow the diet below: Beverages: Oral rehydration solutions, sports drinks, soft drinks without caffeine, mineral water, and decaffeinated tea and coffee Soups: Clear broth, consomm , and bouillon Desserts: Plain gelatin, popsicles, and fruit juice bars During the next 24 hours (the second day), you may add the following to the above if you are better. If not, continue what you did the first day: Hot cereal, plain toast, bread, rolls, crackers Plain noodles, rice, mashed potatoes, chicken noodle or rice soup Unsweetened canned fruit (avoid pineapple), bananas Limit fat intake to less than 15 grams per day by avoiding margarine, butter, oils, mayonnaise, sauces, gravies, fried foods, peanut butter, meat, poultry, and fish. Limit fiber. Avoid raw or cooked vegetables, fresh fruits (except bananas) and bran cereals. Limit caffeine and chocolate. No spices or seasonings except salt. During the next 24 hours: Gradually resume a normal diet, as you feel better and your symptoms improve. If at any time your symptoms start getting worse again, go back to clear liquids until you feel better. Food preparation If you have diarrhea, you should not prepare food for others. When preparing foods, wash your handsbefore and after. Wash your hands or use alcohol-based packing house supervisor after using cutting boards, countertops, and knives that have been in contact with raw food. Dry your hands with a single use towel. Keep uncooked meats away from cooked and lanyl-uk-fsh foods. Follow-up care Follow up with your healthcare provider, or as advised. Call if you don't get better in the next 2 to 3 days. If a stool (diarrhea) sample was taken, or cultures done, you will be told if they are positive, or if your treatment needs to be changed. You may call as directed for the results. If X-rays were taken, you will be notified of any new findings that may affect your care Call 911 Call 911 if any of these occur: Trouble breathing Chest pain Confusion Severe drowsiness or trouble awakening Fainting or loss of consciousness Rapid heart rate Seizure Stiff neck Severe weakness, dizziness, or lightheadedness When to seek medical advice Call your healthcare provider right away if any of these occur: Bloody or black vomit or stools Severe, steady abdominal pain or any abdominal pain that is getting worse Severe headache or stiff neck An inability to hold down even sips of liquids for more than 12 hours Vomiting that lasts more than 24 hours Diarrhea that lasts more than 24 hours Fever of 100.4 F (38.0 C) or higher, or as directed by your healthcare provider Yellowish color to your skin or the whites of your eyes Signs of dehydration, such as dry mouth, little urine (less than every 6 hours), or very dark urine [id number] [employer]. [address] [place] [address]. All rights reserved. This information is not intended as a substitute for professional medical care. Always follow yourhealthcare professional's instructions. Follow Up Care 09/03/2024 02:29:39 With:FERNANDO SHEEHAN III, MD Address: [address] [place] [address] [phone] When:2-4 days [facility] 02-03-2025 Note Discharge Instructions Thank you for allowing [facility] to assist you with your healthcare needs. The following is importantdischarge information regarding your hospital visit. Diagnosis from Today's Visit Nausea vomiting and diarrhea What to Do Next Instructions from Your Care Team Discharge Return to Work, School, or Sports (Return to Work, School, or Sports) - Ordered -- 09/04/24, May return to: work, 09/03/24 3:42:00 EST Post Acute Orders No qualifying data available. You Need to Schedule the Following Appointments Follow Up with FERNANDO SHEEHAN III, MD When:Within 2-4 days Where:[address] [place] [id number] [phone] Allergies amoxicillin penicillin Medications Please ask your primary doctor or pharmacist before taking any other medication not listed, including over the counter drugs, herbal medications, vitamins and or supplements as they may interact withyour home medications. What How Much When Why Instructions Last Dose New ondansetron (ondansetron 4 mg oral tablet, disintegrating) 1 tab(s) by mouth Every 6 hours as needed for Nausea/Vomiting Duration: 4 Days Printed Prescription Unchanged benzonatate (Tessalon Perles 100 mg oral capsule) 2 cap by mouth Three (3) times a day as needed for as needed for cough Upper respiratory infection Unchanged etonogestrel (Nexplanon 68 mg subcutaneous implant) Please take this list to your next doctor s visit. Bring all medications you take, including over the counter medications, herbals and other supplements with you to your doctor s visit. Patients and families are reminded to discard old lists and to update any records with all medication providers or retail pharmacies. Education Materials Nonspecific Vomiting and Diarrhea (Adult) Vomiting and diarrhea can have many causes, including: Helping your body get rid of harmful substances Gastroenteritis caused by viruses, parasites, bacteria, or toxins. Allergy to or side effect of a food or medicine Severe stress or worry (anxiety) Other illnesses It is often hard to pinpoint an exact cause, even with testing. Vomiting and diarrhea often go awaywithin a day or two without problems. If they continue, though, they can lead to too much loss of fluid (dehydration). This can be serious if not treated. Home care Medicines You may use acetaminophen or NSAID medicines like ibuprofen or naproxen to control fever, unless another medicine was prescribed. If you have chronic liver or kidney disease, talk with your healthcare provider before using these medicines. Also talk with your provider if you've had a stomach ulcer or gastrointestinal bleeding. Don't give aspirin to anyone under 18 years of age who is ill with a fever because it may cause severe disease or . Don't use NSAID medicines if you are already taking one for another condition (like arthritis) or are on aspirin (such as for heart disease or after a stroke) Oozu-fcy-ewmzkfe medicines for diarrhea, nausea, and vomiting are generally OK unless you have bleeding, fever, or severe abdominal pain. General care If symptoms are severe, rest at home for the next 24 hours, or until you are feeling better. Washing your hands with soap and water, or using alcohol-based hand packing house supervisor is the best way to stop the spread of infection. Wash your hands after touching anyone who is sick. Wash your hands after using the toilet and before meals. Clean the toilet after each use. Dry your hands with a single use towel. Caffeine, tobacco, and alcohol can make the diarrhea, cramping, and pain worse. Remember, caffeine not only is in coffee, but also is in chocolate, some energy drinks, and teas. Diet Water and clear liquids are important so you don't get dehydrated. Drink a small amount at a time. Don't guzzle down the drinks. That may increase your nausea, make cramping worse, and cause the drinks to come back up. Sports drinks may also help if you are healthy and not too dehydrated. They have too much sugar andnot enough electrolytes and can sometimes make things worse. Also, don't drink beverages that are too acidic, like orange juice and grape juice. If you are very dehydrated, commercially available products called oral rehydration solutions are best. Food Don't force yourself to eat, especially if you have cramps, diarrhea, or vomiting. Eat just a little at a time, and then wait a few minutes before you try to eat more. Don't eat fatty, greasy, spicy, or fried foods. Don't eat dairy products if you have diarrhea. They can make it worse. During the first 24 hours (the first full day), follow the diet below: Beverages: Oral rehydration solutions, sports drinks, soft drinks without caffeine, mineral water, and decaffeinated tea and coffee Soups: Clear broth, consomm , and bouillon Desserts: Plain gelatin, popsicles, and fruit juice bars During the next 24 hours (the second day), you may add the following to the above if you are better. If not, continue what you did the first day: Hot cereal, plain toast, bread, rolls, crackers Plain noodles, rice, mashed potatoes, chicken noodle or rice soup Unsweetened canned fruit (avoid pineapple), bananas Limit fat intake to less than 15 grams per day by avoiding margarine, butter, oils, mayonnaise, sauces, gravies, fried foods, peanut butter, meat, poultry, and fish. Limit fiber. Avoid raw or cooked vegetables, fresh fruits (except bananas) and bran cereals. Limit caffeine and chocolate. No spices or seasonings except salt. During the next 24 hours: Gradually resume a normal diet, as you feel better and your symptoms improve. If at any time your symptoms start getting worse again, go back to clear liquids until you feel better. Food preparation If you have diarrhea, you should not prepare food for others. When preparing foods, wash your handsbefore and after. Wash your hands or use alcohol-based packing house supervisor after using cutting boards, countertops, and knives that have been in contact with raw food. Dry your hands with a single use towel. Keep uncooked meats away from cooked and uxmmg-es-txc foods. Follow-up care Follow up with your healthcare provider, or as advised. Call if you don't get better in the next 2 to 3 days. If a stool (diarrhea) sample was taken, or cultures done, you will be told if they are positive, or if your treatment needs to be changed. You may call as directed for the results. If X-rays were taken, you will be notified of any new findings that may affect your care Call 911 Call 911 if any of these occur: Trouble breathing Chest pain Confusion Severe drowsiness or trouble awakening Fainting or loss of consciousness Rapid heart rate Seizure Stiff neck Severe weakness, dizziness, or lightheadedness When to seek medical advice Call your healthcare provider right away if any of these occur: Bloody or black vomit or stools Severe, steady abdominal pain or any abdominal pain that is getting worse Severe headache or stiff neck An inability to hold down even sips of liquids for more than 12 hours Vomiting that lasts more than 24 hours Diarrhea that lasts more than 24 hours Fever of 100.4 F (38.0 C) or higher, or as directed by your healthcare provider Yellowish color to your skin or the whites of your eyes Signs of dehydration, such as dry mouth, little urine (less than every 6 hours), or very dark urine [id number] [employer]. [address] [place] [address]. All rights reserved. This information is not intended as a substitute for professional medical care. Always follow yourhealthcare professional's instructions. Additional Information VACCINATE! IT SAVES LIVES! Members of the community who have not yet received the COVID-19 vaccine and would like to receive it can visit one of [facility] vaccine clinics. There are many vaccine clinic locations within the [facility]. For locations and available times, please visit [email or web address].[email or web address]/. It is important to note that some COVID mobile vaccine clinics are held outdoors and may be canceled in rainy or stormy conditions. To learn more about pediatric vaccinations (ages 5-11), we invite you to visit the [facility] webpage. https://www.[email or web address].org/pages/4303-Ycvjr-Kbckxeypduq-Kdzpdeqgsh-Ldfdf-Wog stions.htmlTo learn more about the COVID-19 vaccine, we invite you to visit the CDC website for a list of frequently asked questions. https://www.cdc.gov/coronavirus/2019-ncov/vaccines/faq.html [facility] Patient Portal Access Instructions: Stay connected with your healthcare team and access your personal medical information anytime with the [employer] Patient Portal. If you would like a full copy of your medical records please contact the [facility] Medical Records Department Tuesday through Tuesday between 8a.m. and 4:30p.m. Please follow the directions below to access the portal: 1.Access the email account you provided upon registration to the [facility].2.Look for an invitation email from [facility].3.Open the email and access the invitation link: Accept Invitation to [facility]4.Fill in the required graves to create your account. Sign into [email or web address] with your username and password that you created in the above steps to stay up to date. You can then view a summary of results, a summary of your visits, and the ability to download your summaries to your computer or send the information securely to a physician. Remember that your healthcare information is confidential, so carefully consider who you will allow to register on the [employer] Patient Portal for access to your information. You can also access the [employer] Patient Portal on the [employer]. Simply click on Health Records under HealthData and then click on the [employer] logo. HOW TO SAFELY DISPOSE OF PRESCRIPTION MEDICATIONS Please use one of the following methods to safely dispose of your unused medications. 1.Use a drug disposal kit: the drug disposal pouch allows you to safely discard your old and unuseddrugs. Ask your nurse to give you one when you are discharged.2.Visit a local take-back location: Many local pharmacies and police departments have programs that collect old and unwanted prescriptiondrugs. Call your local pharmacy or go to http://bit.Mgv/9H3Js8h to find one close to you.3.Make use of household items: Use cat litter or old coffee grounds to dispose medications if other options arenot available. Mix your drugs with these household products, seal them in an airtight container andthrow it into the garbage. Call [facility]: [phone] to be sure your drugs can be disposed of in this way. Some medicines may require a different approach.4.Never flush your medications down the toilet. IF YOU HAVE BEEN PRESCRIBED AN OPIOIDS FOR PAIN If you have been prescribed an opioid (such as hydrocodone, oxycodone or morphine), it is critical to understand the possible side effects and risks of opioid pain medications. Even when taken as directed, opioids can have several side effects including: Tolerance, meaning you might need to take more of a medication for the same pain relief. Nausea, vomiting and/or constipation. Sleepiness, dizziness, dry mouth, confusion, depression or itching. Physical dependence, meaning you have withdrawal symptoms when a medication is stopped ? this can develop within a few days. KNOW YOUR RESPONSIBILITIES It is important to know exactly how much and how often to take the opioid pain medications you are prescribed. Never take opioids in higher amounts or more often than prescribed. Do not combine opioids with alcohol or other drugs that cause drowsiness, such as benzodiazepines, also known as benzos,including diazepam and alprazolam, muscle relaxants or sleep aids. Never sell or share prescriptionopioids. This is illegal. Store opioids in a secure place and out of reach of others (including children, family, friends and visitors). The last page(s) of this document has been signed and retained as a CHART COPY Signatures Patient Education Materials Vomiting and Diarrhea, Nonspecific (Adult) Medication Leaflets My discharge plan and instructions have been reviewed and explained to me and I,LETITIA HICKMAN understand my current condition and have read and understand these discharge instructions. I have received a written copy of the plan/instructions. If I have questions, I am aware that I should contact my doctor. Patient/Family And Marriage Counsellor Signature: Date/Time: Relationship to Patient: Witness Name/Signature: Date/Time: [facility] Duane [id number] NoteHNO ID: [id number] Author: Mirela Kan APRN.CALL CENTER RECRUITER Service: ? Author Type: Nurse Practitioner Type: Progress Notes Filed: 02/07/2022 10:50 AM Note Text: This is an Express Care eVisit note for Letitia Wei eVisit/Questionnaire reviewed The chief complaint for the visit - Patient presents with: Viral Syndrome Recommendations/Treatment plan - Rx as below plus self care. See My Chart Message to patient. Recommendation for follow up - PRN The following approved medication requests have been transmitted electronically. Signed Prescriptions Disp Refills benzonatate (TESSALON PERLES) 100 mg capsule 21 capsule 0 Sig: Take 1 capsule by mouth three times daily as needed for cough. 10 mins to complete Mirela Kan APRN.[facility]21 NotePatient Outreach (NETNAV) LETITIA WEI ([id number]) 1985 F Date Time Provider Department 07/27/21 PAGE GONG During your visit today, we recorded the following information about you: Page Gong Population Health Navigator 07/27/2021 8:17 AM Signed POPULATION HEALTH NAVIGATION OUTREACH Action/FYI Updated PCP field Contact made with patient or family member? NO Pt identified by name and : NO Outreach Outcome/Action PCP field updated Reason for Outreach Attribution: Provider Off-boarding Payer: Payor: AULTCARE / Plan: AULTCARE PPO / Product Type: PPO / Care Gap Reviewed:: Reminder: Reminder note to check Health Maintenance for items below Health Maintenance items due: COVID-19 VACCINE(1) Never done HEPATITIS C SCREENING Never done HIV SCREENING Never done DEPRESSION SCREENING due on 04/10/2020 INFLUENZA(1) due on 04/01/2021 PAP TESTING due on 04/30/2021 HPV TESTING due on 04/30/2021 Advanced Directives Completed: Have you ever planned for future healthcare decisions with a power of collections attorney, living will, or advance directives? Referrals: Message Sent to Practice: Navigation Signature: Page Gong Population Health Navigator July 27, 2021 8:15 AM Allergies As of Date: 07/27/2021 Noted Allergy Reaction ALOE SKIN CARE (GLYCERIN-MINERAL *01/17/2019 4 - Hives Comments: rash AMOXICILLIN 12/15/2005 4 - Hives PENICILLINS 12/15/2005 Date Reviewed: 06/15/2019 Reviewed by: Elena Smiley - Fully Assessed Reason for Visit: Population Health Navigation Outreach [3910] Cmt: Offboarding Prescriptions as of 07/27/2021 - Phentermine HCl (ADIPEX-P) 37.5 mg capsule Take 37.5 mg by mouth. Problem List As Of Date 07/27/2021 Noted Resolved Dysmetabolic syndrome X [E88.81] 03/13/2007 10/12/2012 Menorrhagia with irregular cycle [N92.1] 03/12/2015 Scalp psoriasis [L40.9] 09/02/2016 Psoriasis [L40.9] 09/02/2016 Lipoma of right lower extremity [D17.23] 11/17/2017 Obesity, Class III, BMI 40-49.9 (morbid obesity*12/08/2017 Strain of left knee [S86.912A] 08/15/2018 Encounter Status:Closed by [facility] POPULATION HEALTH NAVIGATORPAGE on 07/27/21[facility] NoteHNO ID: [id number] Author: Page Chapin Health Navigator Service: ? Author Type: ? Type: Progress Notes Filed: 07/27/2021 8:17 AM Note Text: POPULATION HEALTH NAVIGATION OUTREACH Action/FYI Updated PCP field Contact made with patient or family member? NO Pt identified by name and : NO Outreach Outcome/Action PCP field updated Reason for Outreach Attribution: Provider Off-boarding Payer: Payor: [employer]TCARE / Plan: A[employer]TCARE PPO / Product Type: PPO / Care Gap Reviewed:: Reminder: Reminder note to check Health Maintenance for items below Health Maintenance items due: COVID-19 VACCINE(1) Never done HEPATITIS C SCREENING Never done HIV SCREENING Never done DEPRESSION SCREENING due on 04/10/2020 INFLUENZA(1) due on 04/01/2021 PAP TESTING due on 04/30/2021 HPV TESTING due on 04/30/2021 Advanced Directives Completed: Have you ever planned for future healthcare decisions with a power of collections attorney, living will, or advance directives? 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 EST CARE - WC PN T SKIN TAG SKIN TAG EORDER Reason for Visit COVID-19 vaccination declined Elevated blood pressure reading Establishing care with new doctor, encounter for Infertility Prediabetes Vitamin D deficiency 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 with anovulation Skin tag [facility] Work Phone: Evaluation + Plan note No data available for this section [facility] Evaluation note* Diagnosis Onset Date Resolution Status Abnormal uterine bleeding ac [place] BMI 45.0-49.9, adult acute 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 with anovulation acute Encounter for routine gynecological examination noneactive BMI 45.0-49.9, adult acute [facility] Work Phone: Evaluation note* Diagnosis Onset Date Resolution Status Abnormal uterine bleeding ac [place] BMI 45.0-49.9, adult acute 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 with anovulation acute Encounter for routine gynecological examination noneactive BMI 45.0-49.9, adult acute Lesion of right nipple acute Lesion of right nipple acute [facility] Work Phone: Evaluation note* Diagnosis Onset Date Resolution Status Lesion of right nipple resol scott Lesion of right nipple resol scott Abnormal uterine bleeding ac [place] BMI 45.0-49.9, adult acute 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 with anovulation acute History of endometrial hyperplasia acute Hyperlipidemia acute Insulin resistance acute Metabolic syndrome acute Skin tag acute [facility] Work Phone: Evaluation note* Diagnosis Onset Date Resolution Status Abnormal uterine bleeding ac [place] BMI 45.0-49.9, adult acute 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 with anovulation acute History of endometrial hyperplasia acute Hyperlipidemia acute Insulin resistance acute Metabolic syndrome acute Skin tag acute Abnormal uterine bleeding ac [place] BMI 45.0-49.9, adult acute 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 with anovulation acute History of endometrial hyperplasia acute Hyperlipidemia acute Insulin resistance acute Metabolic syndrome acute Abnormal uterine bleeding ac [place] BMI 45.0-49.9, adult acute Elevated blood-pressure read ing without diagnosis of hypertension acute 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 with anovulation acute Hyperlipidemia acute Insulin resistance acute Metabolic syndrome acute Encounter for Nexplanon removal noneactive [facility] Work Phone: Evaluation note* Diagnosis Onset Date Resolution Status Abnormal uterine bleeding ac [place] BMI 45.0-49.9, adult acute 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 with anovulation acute Insulin resistance resolved Abnormal uterine bleeding ac [place] BMI 45.0-49.9, adult acute 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 with anovulation acute Elevated blood-pressure read ing without diagnosis of hypertension resolved Insulin resistance resolved Encounter for Nexplanon removal noneactive COVID-19 vaccination declined noneactive Elevated blood pressure reading noneactive Establishing care with new doctor, encounter for noneactive Infertility noneactive Prediabetes noneactive Vitamin D deficiency noneact bartolo 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 with anovulation acute Skin tag noneactive [facility] Work Phone: Evaluation note* Diagnosis Onset Date Resolution Status Abnormal uterine bleeding ac [place] BMI 45.0-49.9, adult acute 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 with anovulation acute Elevated blood-pressure read ing without diagnosis of hypertension resolved Insulin resistance resolved Encounter for Nexplanon removal noneactive COVID-19 vaccination declined noneactive Elevated blood pressure reading noneactive Establishing care with new doctor, encounter for noneactive Infertility noneactive Prediabetes noneactive Vitamin D deficiency noneact bartolo 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 with anovulation acute Skin tag noneactive [facility] Work Phone: Evaluation note* Diagnosis Onset Date Resolution Status COVID-19 vaccination declined noneactive Elevated blood pressure reading noneactive Establishing care with new doctor, encounter for noneactive Infertility noneactive Prediabetes noneactive Vitamin D deficiency noneact bartolo 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 with anovulation acute Skin tag noneactive [facility] Work Phone: Evaluation note* Diagnosis Onset Date Resolution Status 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 with anovulation acute Skin tag noneactive [facility] Work Phone: Evaluation noteNo assessment information available [facility] Work Phone: Reason for referral (narrative)No reason for referral information availableWTri[facility] Work [facility]: Summary Purpose Family History No Family History Records Found Relationship Condition Age at Onset Recorded Date/T donte mother Malignant neoplasm of breast Unknown Advance Directives No Advanced Directives Records Found Advance Directive Response Recorded Date/ Time Advance Directives No December 08 8 8:49am Living Will No December 08, 2017 8 :49am Power of Setup Operator No December 08, 2017 8:49am Advance Directive Response Recorded Date/ Time Advance Directives No September 5:06pm Living Will No September 27, 2 023 5:06pm Power of Setup Operator No September 27, 2022 5:06pm Advance Directive Response Recorded Date/ Time Advance Directives No September 4:06pm Living Will No September 27, 2 023 4:06pm Power of Setup Operator No September 27, 2022 4:06pm Advance Directive Response Recorded Date/ Time Advance Directives No September 5:06pm Chief Complaint and Reason for Visit 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 Reason for Visit Abnormal uterine ble eding BMI 45.0-49.9, adult 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 with anovulation Encounter for routine gynecological examination BMI 45.0-49.9, adult 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 Rt breast painful, discharge, mom hx of cancer MASTODYNIA RIGHT BREAST LESION Reason for Visit Abnormal uterine ble eding BMI 45.0-49.9, adult 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 with anovulation Encounter for routine gynecological examination BMI 45.0-49.9, adult Lesion of right nipple Lesion of right nipple Chief Complaint Rt breast painful, d ischarge, mom hx of cancer MASTODYNIA RIGHT BREAST LESION 3 month weight check Skin Tag Removal SKIN TAG Reason for Visit Lesion of right nipp le Lesion of right nipple Abnormal uterine bleeding BMI 45.0-49.9, adult 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 with anovulation History of endometrial hyperplasia Hyperlipidemia Insulin resistance Metabolic syndrome Skin tag Chief Complaint 3 month weight check Skin Tag Removal SKIN TAG weight management consult, per portal message 3 M FU Reason for Visit Abnormal uterine ble eding BMI 45.0-49.9, adult 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 with anovulation History of endometrial hyperplasia Hyperlipidemia Insulin resistance Metabolic syndrome Skin tag Abnormal uterine bleeding BMI 45.0-49.9, adult 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 with anovulation History of endometrial hyperplasia Hyperlipidemia Insulin resistance Metabolic syndrome Abnormal uterine bleeding BMI 45.0-49.9, adult Elevated blood-pressure reading without diagnosis of hypertension 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 with anovulation Hyperlipidemia Insulin resistance Metabolic syndrome Encounter for Nexplanon removal Chief Complaint Skin Tag Removal SKIN TAG weight management consult, per portal message 3 M FU 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 EST CARE - WC PNT SKIN TAG SKIN TAG Reason for Visit Abnormal uterine ble eding BMI 45.0-49.9, adult 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 with anovulation Insulin resistance Abnormal uterine bleeding BMI 45.0-49.9, adult 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 with anovulation Elevated blood-pressure reading without diagnosis of hypertension Insulin resistance Encounter for Nexplanon removal COVID-19 vaccination declined Elevated blood pressure reading Establishing care with new doctor, encounter for Infertility Prediabetes Vitamin D deficiency 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 with anovulation Skin tag Chief Complaint 3 M FU 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 EST CARE - WC PNT SKIN TAG SKIN TAG Reason for Visit Abnormal uterine ble eding BMI 45.0-49.9, adult 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 with anovulation Elevated blood-pressure reading without diagnosis of hypertension Insulin resistance Encounter for Nexplanon removal COVID-19 vaccination declined Elevated blood pressure reading Establishing care with new doctor, encounter for Infertility Prediabetes Vitamin D deficiency 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 with anovulation Skin tag Chief Complaint SKIN TAG SKIN TAG EORDER Reason for Visit 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 with anovulation Skin tag Chief Complaint EORDER Chief Complaint Admit Date PAIN DURING MENSES/FERTILITY December 07 10:05am CYCLICAL PELVIC PAIN December 17, 2024 2:27 pm Reason for Visit Admit Date Cyclical pelvic pain December 07, 2024 10:05 am Additional Source Comments INFORMATION SOURCE (unrecogn ized section and content) DATE CREATED AUTHOR 10/01/2020 [facility] ([place]) DATE CREATED AUTHOR AUTHOR'S ORGANIZ ATION 02/07/2022 [facility] DATE CREATED AUTHOR AUTHOR'S ORGANIZ ATION 09/08/2024 [facility] DATE CREATED AUTHOR AUTHOR'S ORGANIZ ATION 12/19/2024 [facility] Goals (unrecognized section and content) Goals may be documented in a n alternate sectionGoals may be documented in an alternate sectionGoals may be documented in an alternate sectionGoals may be documented in an alternate sectionGoals may be documented in an alternate sectionGoals may be documented in an alternate sectionGoals may be documented in an alternate sectionGoals may be documented in an alternate sectionGoals may be documented in an alternate sectionGoals may be documented in an alternate sectionGoals may be documented in an alternate section No data available for this sectionGoals may be documented in an alternate section Care Teams (unrecognized sec tion and content) Team Status: Active Member Role Status Dates Dr. Fernando Sheehan III, MD Family Provider Active No Primary Care Physician Primary Care Provider Active Team Status: Inactive Member Role Status Dates Dr. Hayde Luna MD Attending Provider Active Team Status: Inactive Member Role Status Dates Meredith Chatman PERFORMANCE IMPROVEMENT CONSULTANT, PERFORMANCE IMPROVEMENT CONSULTANT-C Attending Provider Active No Primary Care Physician Primary Care Provider Active Team Status: Inactive Member Role Status Dates No Primary Care Physician Primary Care Provider, Refer ring Provider Active Dr. Hayde Luna MD Attending Provider Active Team Status: Inactive Member Role Status Dates No Primary Care Physician Primary Care Provider, Refer ring Provider Active Dr. Jacky Rollins MD Attending Provider Active Team Status: Inactive Member Role Status Dates No Primary Care Physician Primary Care Provider Active Dr. Hayde Luna MD Attending Provider, Referr ing Provider Active Team Status: Active Member Role Status Dates No Primary Care Physician Primary Care Provider Active Dr. Hayde Luna MD Attending Provider, Referr ing Provider Active Team Status: Active Member Role Status Dates No Primary Care Physician Primary Care Provider Active Dr. Jacky Rollins MD Attending Provider, Referr ing Provider Active Team Status: Inactive Member Role Status Dates No Primary Care Physician Primary Care Provider Active Dr. Jacky Rollins MD Attending Provider, Referr ing Provider Active Team Status: Inactive Member Role Status Dates Dr. Hayde Luna MD Attending Provider Active No Primary Care Physician Primary Care Provider, Refer ring Provider Active Team Status: Inactive Member Role Status Dates No Primary Care Physician Primary Care Provider, Refer ring Provider Active Dr. Hazel Eason MD Attending Provider Active Team Status: Inactive Member Role Status Dates No Primary Care Physician Primary Care Provider Active Dr. Hayde Luna MD Attending Provider Active Team Status: Active Member Role Status Dates Dr. Fernando Sheehan III, MD Family Provider Active Dr. Hazel Eason MD Primary Care Provider Active Team Status: Inactive Member Role Status Dates Dr. Hazel Eason MD Primary Care Provider Active Dr. Hayde Luna MD Attending Provider, Referr ing Provider Active Team Status: Active Member Role Status Dates Dr. Hazel Eason MD Primary Care Provider Active Team Status: Inactive Member Role Status Dates Dr. Hazel Eason MD Primary Care Provider Active Start: December 07, 2024 End: December 07, 2024 Dr. Hazel Eason MD Referring Provider Active Start: December 07, 2024 End: December 07, 2024 Dr. Hayde Luna MD Attending Provider Active Start: December 07, 2024 End: December 07, 2024 Team Status: Inactive Member Role Status Dates Dr. Hazel Eason MD Primary Care Provider Active Start: December 17, 2024 End: December 17, 2024 Dr. Hayde Luna MD Attending Provider Active Start: December 17, 2024 End: December 17, 2024 Dr. Hayde Luna MD Referring Provider Active Start: December 17, 2024 End: December 17, 2024 FOR RECORDS PERTAINING TO PATIENTS WHO ARE OR HAVE BEEN ENROLLED IN A CHEMICAL DEPENDENCY/SUBSTANCEABUSE PROGRAM, SOME INFORMATION MAY BE OMITTED. This clinical summary was aggregated from multiple sources. Caution should be exercised in using it in the provision of clinical care. This summary normalizes information from multiple sources, and as a consequence, information in this document may materially change the coding, format and clinical context of patient data. In addition, data may be omitted in some cases. CLINICAL DECISIONS SHOULD BE BASED ON THE PRIMARY CLINICAL RECORDS. [facility]. provides no warranty or guarantee of the accuracy or completeness of information in this document.
[2025-01-24 12:18] LABS: Absolute Lymphocyte Count 2.21 X10^3/uL (0.83-4.51); Absolute Neutrophil Count 6.2 X10^3/uL (2.0-7.7); Basophil# 0.06 X10^3/uL; Basophil% 0.7 % (0-1); Eosinophil# 0.15 X10^3/uL; Eosinophils% 1.6 % (0-5); Hematocrit 39.6 % (37-47); Hemoglobin 12.3 g/dL (12.0-15.0); Lymphocyte # 2.21 X10^3/ul (0.83-4.51); Lymphocyte % 24.1 % (19-41); Mean Corp Hgb Conc 31.1 g/dL (32-36); Mean Corpuscular Hgb 25.3 pg (27.0-32.0); Mean Corpuscular Volume 81.5 fL (81-99); Mean Platelet Vol. 12.6 fl (6.2-12.0); Monocyte# 0.51 X10^3/uL; Monocyte% 5.6 % (0-10); NRBC Flagged by Analyzer 0 % (0-5); Neutrophil # 6.22 X10^3/uL (2.7-7.7); Neutrophil % 67.7 % (47-70); POSITIVE COUNT YES; RBC Distribution Width CV 13.8 % (11.6-14.6); RBC Distribution Width SD 40.4 fl (35.1-43.9); Red Blood Count 4.86 M/mm3 (4.2-5.4); White Blood Count 9.2 K/mm3 (4.4-11.0)
[2025-01-24 13:13] LABS: Differential Indicated SCAN CRITERIA MET
[2025-01-24 13:14] LABS: Platelet Estimate ADEQUATE (ADEQ)
[2025-01-26 22:07] LABS: Testosterone Free 0.4 pg/mL (0.0-4.2)
== END | disposition home or self-care (01) ==
PROVIDERS: PCP Internal Medicine; Referring Provider Obstetrics & Gynecology; Visit Provider Obstetrics & Gynecology
DX: N97.0 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 with anovulation (principal); Z13.29 Encounter for screening for other suspected endocrine disorder; Z13.0 Encounter for screening for diseases of the blood and blood-forming organs and certain disorders involving the immune mechanism; E88.810 Metabolic syndrome
CPT/HCPCS: 36415; 84402; 84443; 85025

== ENCOUNTER → 2025-02-26 | Outpatient (CLI) | payer SELFPAY ==
--- NOTE | 2025-02-26 11:58 | RAD_ITS ---
PROCEDURE: SALPINGOGRAM 02/26/2025 REASON FOR EXAM: INFERTILITY TECHNIQUE: SALPINGOGRAM. Fluoroscopic guided hysterosalpingogram was performed by the gynecology physician. Images are presented. Fluoroscopy time: 32 seconds. Dose: 40.27 mGy. COMPARISON: None. RAD/Salpingogram IMPRESSION: A total of 7 images are presented, demonstrating filling of the endometrial cav ity, bilateral fallopian tubes, with free spillage bilaterally noted. No fallopian tube abnormality is seen. Reading Location: [place] [id number]
--- NOTE | 2025-02-26 12:20 | PRO.PCM_ITS ---
Problems Associated Problem List Diagnoses (1) Infertility of tubal origin: Multi Select Codes Urinary/Genital Urinary/Genital CPT Codes: 58894 HSG/SIS Non-invasive Procedural Procedure Information Date of Procedure: 02/26/25 Pre-Procedure Diagnosis: infertility Post-Procedure Diagnosis: infertility Procedure Performed:: hysterosalpingogram salon customer experience specialist: No Description of procedure: Findings: Bilateral tubal blockage, normal uterine cavity Operative details: Patient was taken to the x-ray room and was placed on the x- ray table and was in the dorsal lithotomy position. Speculum was placed in the vagina and the cervix prepped with Betadine and the HSG catheter was easily introduced into the uterus and speculum removed. Radiopaque dye was pushed into the uterus via the HSG catheter multiple images and views and confirmed bilateral tubal obstruction. No gross uterine filling defects or abnormalities were seen. All instruments removed from the vagina and the uterus without complication. Patient tolerated the procedure well. Procedure findings: fallopian tubes obstructed. Complications Complications: No
== END | disposition home or self-care (01) ==
LOC: RAD 11:51
PROVIDERS: PCP Internal Medicine; Referring Provider Obstetrics & Gynecology; Visit Provider Obstetrics & Gynecology
DX: Z31.41 Encounter for fertility testing (principal); R10.2 Pelvic and perineal pain
CPT/HCPCS: 58340; 74740; Q9967